=== PATIENT | female | born 1935 | race Caucasian/White ===

== ENCOUNTER 2024-04-08 09:48 | Outpatient (AMB) | payer MEDICARE, SELFPAY ==
--- NOTE | 2024-04-08 09:34 | MHC.PC.OV ---
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 Patient brought in a blood pressure log, suggested by her son who is an PROFESSIONAL FIGHTER. Patient wanted to inform her provider of her cardiac appointment. Patient is taking mucinex DM Q12H as needed, calcium magnesium 500mg TID with vitamin D3 1000mg, vitamin C 1000mg daily, vitamin d3 5000iu weekly, vitamin b complex, zinc 22mg, joint health OTC vitamin 2 capsules, black elderberry syrup. Patient has a concern for pain in bilateral hands (carpal tunnel), RX for brace RX for a cane Bilateral leg swelling with feet turning red ECHO for heart health check- family history of heart disease Patient lost her sister recently Strategy Specialist Required: No Accompanied by: Grand Child Allergies alendronate sodium [From Fosamax] Allergy (Severe, Verified 04/08/24 10:04) Diarrhea latex Allergy (Severe, Verified 04/08/24 10:04) Rash NSAIDS (Non-Steroidal Anti-Inflamma Allergy (Severe, Verified 04/08/24 10:04) Stomach Upset Penicillins Allergy (Severe, Verified 04/08/24 10:04) Rash Medication List - Last Reconciled 04/11/24 by Brandie Gómez MD acetaminophen 500 mg PO Q6H PRN arm brace As directed Carpal tunnel rigid plantar wrist brace. L& R atorvastatin 40 mg PO BEDTIME azelaic acid 15% (Finacea) 1 appl topical BID azithromycin 250 mg PO .1 hour before appt cane As directed cetirizine (All Day Allergy (cetirizine)) 10 mg PO DAILY PRN fluticasone furoate 50 mcg/actuation inhalation furosemide 20 mg PO DAILY hard/soft/gas permeable prods (Systane Contacts eye drops) As directed ipratropium bromide 2 sprays intranasal BID metronidazole 1% (Metrogel) 1 appl topical DAILY omeprazole 20 mg PO DAILY vitamins A,C,G-spbg-gizezm 2,148 mcg-113 mg-45 mg-17.4mg (PreserVision AREDS) 2 tabs PO BID HPI HPI Comments History of Present Illness Details 88 year old female with a past medical history of hypertension, hyperlipidemia, GERD, osteoporosis presenting for follow up CV: on losartan 100mg daily, furosemide, atorvastatin. No increase in cheset pain, LE edema. She had an echo in 2020, stress echo in 2021-EF decreased from 55-60 to 45-50 with hypokineses noted. Cardiology had recommended catheterization but patient wanted to defer GERD: On PPI. Endo: Follows with [facility] endo. Used actonel and fosamax in the past with exacerbation of GERD. Saw them 02/2024 discussed reclast further. She is repeating labs, bone density and following up in TOMEKA: on CPAP MSK: Chronic bilateral knee pain. History of knee replacements. Worsening carpal tunnel bilateral hands negatively effecting ADLs. Needs cane at times. Uses braces but quite old Colonoscopy 2016-saw gi decline colonoscopy Mammo 05/2022. Stopped Gas Desulfurizer 11/2021 s/p TSH BSO ROS CONSTITUTIONAL: Denies weight loss, fever and chills. HEENT: Denies changes in vision and hearing. RESPIRATORY: Denies SOB and cough. CV: Denies palpitations and CP GI: Denies abdominal pain, nausea, vomiting and diarrhea. : Denies dysuria and urinary frequency. MSK: Denies new myalgia and joint pain. SKIN: Denies rash and pruritus. NEUROLOGICAL: Denies headache PSYCHIATRIC: Denies recent changes in mood. PHYSICAL EXAM: GENERAL: Alert and oriented x 3. NAD EYES: EOMI. Anicteric. HENT: Moist mucous membranes. No scleral icterus. No cervical lymphadenopathy. LUNGS: Clear to auscultation bilaterally. CARDIOVASCULAR: Regular rate and rhythm. ABDOMEN: Soft, non-tender +bs EXTREMITIES: No edema. Non-tender. SKIN: No rashes or lesions. Warm. NEUROLOGIC: No focal neurological deficits. CN II-XII grossly intact PSYCHIATRIC: Cooperative. Appropriate mood and affect [facility] Medical History Vitamin D deficiency Tubular adenoma of colon Tinnitus Squamous cell carcinoma in situ TOMEKA (obstructive sleep apnea) History of nocturia Mixed incontinence Mantoux: positive Hypertension Hyperlipidemia Hyperglycemia Eczema Deep vein thrombosis Benign familial hematuria Arthritis Macular degeneration, age related Surgical History History of total right knee replacement History of bilateral oophorectomy History of hysterectomy Hx of appendectomy History of colonoscopy Social History Household Members: Spouse Housing: House Alcohol intake: current Alcohol intake frequency: holidays/special occasions only Patient Tobacco Use Status: Never used Tobacco e-Cigarette/Vaping Use: Never Used service: No Current occupational status: retired Cognitive needs: No Hearing needs: No Vision needs: No Questionnaire PHQ-9 Over the last 2 weeks, how often have you been bothered by any of the following problems? 1. Little interest or pleasure in doing things: not at all 2. Feeling down, depressed, or hopeless: not at all 3. Trouble falling or staying asleep, or sleeping too much: several days 4. Feeling tired or having little energy: not at all 5. Poor appetite or overeating: not at all 6. Feeling bad about yourself - or that you are a failure or have let yourself or your family down: not at all 7. Trouble concentrating on things, such as reading the newspaper or watching television: not at all 8. Moving or speaking so slowly that other people could have noticed. Or the opposite - being so fidgety or restless that you have been moving around a lot more than usual: not at all 9. Thoughts that you would be better off or of hurting yourself in some way: not at all Total score: 1 Depression Screening Interpretation: Negative (neg) Depression Screening Done: Yes 55532 - PHQ-9 Billing: Yes Source: Developed by Drs. Hi Pradhan, Rosa Rdz, Zechariah Gao and colleagues, with an educational cherelle from [employer]. Thrive Questionnaire Date Thrive assessed: 04/08/24 I am a: Patient What is your living situation today?: I have a steady place to live Within the past 12 months, did the food you bought not last and you didn't have the money to get more?: Never true Within the past 12 months, did you worry whether your food would run out before you got money to buy more?: Never true Do you have trouble paying for medicines?: No Do you have trouble getting transportation to medical appointments?: No Do you have trouble paying your heating and electricity bill?: No Do you have trouble taking care of your child, family member or friend?: No Do you have trouble with day-to-day activities such as bathing, preparing meals, shopping, managing finances, etc.?: No Are you currently unemployed and looking for a job?: No Are you interested in more education?: No Please select the resources that you would like help with: None Currently or been in a relationship where the following occur: No concerns reported THRIVE Score: 0 AUDIT C Alcohol Use Questionnaire (AUDIT-C) 1. How often do you have a drink containing alcohol?: Never 3. How often do you have six or more drinks on one occasion?: Never Total Score: 0 BRANDAN-7 AMB Questionnaire BRANDAN-7 Date BRANDAN - 7 assessed: 04/08/24 Feeling nervous, anxious, or on edge: 0 = Not at all Not being able to stop or control worryin = Not at all Worrying too much about different things: 0 = Not at all Trouble relaxin = Not at all Being so restless that it is hard to sit still: 0 = Not at all Becoming easily annoyed or irritable: 0 = Not at all Feeling afraid as if something awful might happen: 0 = Not at all Total BRANDAN-7 score (0-4 normal; 5-9 mild; 10-14 moderate; 15-21 severe): 0 Source: Developed by Drs. Hi Pradhan, Rosa Rdz, Zechariah Gao and colleagues, with an educational cherelle from [employer]. BRANDAN-7 Assessment Billing BRANDAN-7 Assessment Tool: BRANDAN-7 Assessment 26998 Physical exam (Primary Care) Vital Signs: Last Vital Signs Pulse 87 04/08/24 09:58 Resp 12 04/08/24 09:58 BP 146/74 H 04/08/24 09:58 Pulse Ox 97 04/08/24 09:58 Oxygen Delivery Method Room Air 04/08/24 09:58 BMI result Body Mass Index 32.2 Tobacco/Smoking Status: Tobacco use Status Patient Tobacco Use Status Never used Tobacco 04/08/24 10:31 e-Cigarette/Vaping Use Never Used 04/08/24 10:31 PHQ-9: PHQ-9 Score PHQ-9: Total score 1 04/08/24 10:50 Depression Screening Interpretation: Negative (neg) Thrive Assessment: Date of Thrive Assessment Date Thrive assessed 04/08/24 04/08/24 10:26 Currently or been in a relationship where the following occur: No concerns reported Assessment and Plan Assessment & Plan (1) Hypertension: Code(s): I10 - Essential (primary) hypertension Qualifiers: Hypertension type: primary hypertension Qualified Code(s): I10 - Essential (primary) hypertension Plan: Blood pressure slightly elevated Will treat per previous guidelines <150/90 given patients age. Labs ordered Echo ordered (2) Hyperglycemia: Code(s): R73.9 - Hyperglycemia, unspecified Plan: Labs ordered (3) Carpal tunnel syndrome: Code(s): G56.00 - Carpal tunnel syndrome, unspecified upper limb Qualifiers: Laterality: unspecified laterality Qualified Code(s): G56.00 - Carpal tunnel syndrome, unspecified upper limb Plan: referral to orthopedics placed (4) CHF (congestive heart failure): Code(s): I50.9 - Heart failure, unspecified Qualifiers: Heart failure type: combined systolic and diastolic Heart failure chronicity: chronic Qualified Code(s): I50.42 - Chronic combined systolic (congestive) and diastolic (congestive) heart failure Plan: Euvolemic Continue current medications Orders: Orders Complete Blood Count Auto Diff 04/08/24 G47.33 - Obstructive sleep apnea (adult) (pediatric), I10 - Essential (primary) hypertension, I50.9 - Heart failure, unspecified, R73.9 - Hyperglycemia, unspecified Comprehensive Met. Panel 04/08/24 G47.33 - Obstructive sleep apnea (adult) (pediatric), I10 - Essential (primary) hypertension, I50.9 - Heart failure, unspecified, R73.9 - Hyperglycemia, unspecified Lipid Panel 04/08/24 G47.33 - Obstructive sleep apnea (adult) (pediatric), I10 - Essential (primary) hypertension, I50.9 - Heart failure, unspecified, R73.9 - Hyperglycemia, unspecified Hemoglobin A1c 04/08/24 G47.33 - Obstructive sleep apnea (adult) (pediatric), I10 - Essential (primary) hypertension, I50.9 - Heart failure, unspecified, R73.9 - Hyperglycemia, unspecified TSH reflex Free T4 04/08/24 G47.33 - Obstructive sleep apnea (adult) (pediatric), I10 - Essential (primary) hypertension, I50.9 - Heart failure, unspecified, R73.9 - Hyperglycemia, unspecified CA echo transthoracic complete 04/08/24 G47.33 - Obstructive sleep apnea (adult) (pediatric), I10 - Essential (primary) hypertension, I50.9 - Heart failure, unspecified, R73.9 - Hyperglycemia, unspecified Referrals Orthopedics Referral G56.00 - Carpal tunnel syndrome, unspecified upper limb Medications: New cane As directed 1 ea 0RF M25.561 - Pain in right knee arm brace As directed Carpal tunnel rigid plantar wrist brace. 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
[2024-04-08 09:58] VITALS: BP 146/74; PULSE 87; RESP 12; O2SAT 97; BMI 32.2
== END 2024-04-08 10:53 | disposition home or self-care (01) ==
PROVIDERS: PCP Internal Medicine; Visit Provider Internal Medicine
DX: I11.0 Hypertensive heart disease with heart failure (principal); I50.42 Chronic combined systolic (congestive) and diastolic (congestive) heart failure; R73.9 Hyperglycemia, unspecified; G56.00 Carpal tunnel syndrome, unspecified upper limb
CPT/HCPCS: 99215

== ENCOUNTER 2024-04-08 11:02 | Outpatient (REF) | payer MEDICARE, SELFPAY ==
[2024-04-08 14:00] LABS: MANUAL DIFF FLAG NO
[2024-04-08 14:02] LABS: Basophils Percent Auto 1.1 % (0-2); Eosinophils Absolute Auto 0.1 X10*3/uL (0.0-0.4); Eosinophils Percent Auto 3.3 % (0-4); Hematocrit 36.5 % (37.0-47.0); Hemoglobin 12.3 g/dl (12.0-16.0); Lymphocytes Percent Auto 28.3 % (20-40); Mean Corpuscular HGB Conc 33.7 g/dl (31.0-35.0); Mean Corpuscular Hemoglobin 33.2 pg (27.0-33.0); Mean Corpuscular Volume 98.6 fL (80.0-98.0); Mean Platelet Volume 10.9 fL (9.4-12.3); Monocytes Absolute Auto 0.3 X10*3/uL (0.1-1.2); Monocytes Percent Auto 8.4 % (2-11); Neutrophils Absolute Auto 2.2 x10*3/uL (2.0-8.3); Neutrophils Percent Auto 58.9 % (45-73); Platelet Count 175 X10*3/uL (160-400); Red Cell Distribution Width 12.3 % (11.0-16.0); White Blood Count 3.7 X10*3/uL (4.8-10.8)
[2024-04-08 14:14] LABS: Estimated Average Glucose 105 mg/dL; Hemoglobin A1c % 5.3 % (<6.0)
[2024-04-08 14:26] LABS: Alanine Aminotransferase 17 U/L (0-31); Albumin Level 4.3 g/dL (3.5-5.0); Alkaline Phosphatase 78 U/L (39-117); Anion Gap 12 (12-20); Aspartate Amino Transferase 23 U/L (5-31); Bilirubin Total 0.7 mg/dL (0.0-1.0); Blood Urea Nitrogen 16 mg/dL (9-16); Calcium 9.7 mg/dL (8.4-10.2); Carbon Dioxide 30 mmol/L (22-29); Chloride 104 mmol/L (96-108); Cholesterol 135 mg/dL (<200); Estimated Glomerular Filt Rate > 60; Glucose Random 98 mg/dL (60-115); HDL Cholesterol 72 mg/dL (>40); LDL Cholesterol Calculated 56 mg/dL (<100); Potassium 3.7 mmol/L (3.3-5.1); Sodium 142 mmol/L (135-145); Total Protein 7.2 g/dL (6.5-8.0); Triglycerides 37 mg/dL (<150)
[2024-04-08 14:44] LABS: TSH reflex Free T4 2.12 uIU/mL (0.32-4.0)
== END 2024-04-08 11:03 | disposition home or self-care (01) ==
LOC: HO.WFDLDS 11:02
PROVIDERS: Visit Provider Internal Medicine
DX: G47.33 Obstructive sleep apnea (adult) (pediatric) (principal); I10 Essential (primary) hypertension; R73.9 Hyperglycemia, unspecified; I50.9 Heart failure, unspecified
CPT/HCPCS: 36415; 80053; 80061; 83036; 84443; 85025

== ENCOUNTER → 2024-04-23 10:53 | Outpatient (REF) | payer MEDICARE, SELFPAY ==
--- NOTE | 2024-04-23 10:56 | CA_ITS ---
Transthoracic Echocardiogram Patient (Last, First, Middle): Alaina Mack, Gender: Female Date of : 1935 Age: 88 Procedure Date: 04/23/2024 Procedure Type: Transthoracic Echocardiogram Location: OP Height: 160.02 cm Weight: 82.56 kg BSA: 1.86 m2 Heart Rate: 69 bpm BP: 146 / 74 mmHg Installations Inspector: SB Referring MD: Brandie Gómez MD Support Services Coordinator: Catrachito Munguia MD Symptoms: I50.9 - Heart failure, unspecified Study Quality: Adequate ECG Rhythm: Sinus Conclusions: - 1. Normal LV ejection fraction 60 65% with grade 2 diastolic dysfunction 2. Mild mitral annular calcification with mild mitral regurgitation 3. Normal RV systolic pressure 4. No gross pericardial effusion Findings Left Ventricle Normal left ventricular size, thickness, and systolic function. The visually estimated ejection fraction is between 60-65%. Spectral Doppler is indicative of a pseudonormal filling pattern. E/E prime ratio is >15, consistent with elevated filling pressures. Evidence suggests grade II (moderate) diastolic dysfunction. Right Ventricle Normal right ventricular cavity size and systolic function. Atria The left atrium is mildly dilated. There is no evidence of interatrial shunt. The right atrium is normal in size. Aortic Valve The aortic valve structure and function is likely normal. There is no aortic valve stenosis. There is no aortic valve regurgitation. Mitral Valve There is mild anterior and moderate posterior mitral leaflet thickening. There is mild mitral annular calcification. There is mild mitral valve regurgitation. There is no mitral valve stenosis. Pulmonic Valve The pulmonic valve was not well visualized. Tricuspid Valve Likely normal tricuspid valve structure and function. There is trace tricuspid valve regurgitation. The right ventricular systolic pressure is normal. The right ventricular systolic pressure is 22 mmHg. Normal right atrial pressure. There is no evidence of pulmonary hypertension. Great Vessels All visible segments of the aorta are normal in size. The pulmonary artery was not well visualized. Venous The inferior vena cava is normal in size and collapses greater than 50% with inspiration. Pericardium/Pleural There is no evidence of pericardial effusion. Prior Study Comparison No prior study available for comparison. Measurements 2D Linear Measurements IVSd: 0.84 0.6-0.9/0.6-1.0 cm LVIDd: 5.27 3.9-5.3/4.2-5.9 cm LVIDd Index: 2.83 2.4-3.2/2.2-3.1 cm/m2 LVIDs: 3.71 2.0-3.6 cm LVPWd: 0.91 0.7-1.1 cm LA Diam: 4.20 2.7-3.8/3.0-4.0 cm LAIDs Index: 2.26 1.5-2.3 cm/m2 LV Mass: 207.26 67-162/88-224 g LV Mass Index: 111.43 43-95/49-115 g/m2 LVOT Diam: 2.10 3.0+(-)1.3 cm 2D Systolic Function EF 4C: 52.60 >55% EF 2C: 68.30 >55% EF BiP: 60.50 >55% Mitral Valve MV Pk E: 1.12 MV PK A: 0.93 MV Decel Time: 173.00 E/A: 1.20 E'Lateral: 6.31 E'Medial: 7.18 E/E' Med: 15.60 E/E' Lat: 17.70 PHT: 51.00 MVA PHT: 4.31 Decel Mobile: 6.46 Aortic Valve AoV Pk Leo: 1.31 AoV Mn Leo: 1.00 AoV VTI: 0.32 AoV Pk Grad: 7.00 Aov Mn Grad: 4.00 IKMBERLY Cont.VTI: 2.24 KIMBERLY: 2.67 LVOT LVOT Pk Leo: 0.92 LVOT Mn Leo: 0.62 LVOT VTI: 0.21 LVOT Pk Grad: 3.00 LVOT Mn Grad: 2.00 LVOT Diam: 2.10 LVOT Area: 3.46 Diastolic Function MV Pk E: 1.12 MV Pk A: 0.93 E/A: 1.20 E'Medial: 7.18 E/E' Med: 15.60 E' Laterial: 6.31 E/E' Lat: 17.70 Right Ventricle TAPSE (mm): 22.60 TVS' Leo: 15.10 Tricuspid Valve TR Pk Leo: 2.20 TR Pk Grad: 19.00 RA Press: 3.00 RVSP: 22.00 Great Vessels Aorta Sinus of Valsalva: 3.10 2.0-3.5 cm Ao Asc: 3.40 2.1-3.4 cm Pulmonary Veins Pulm Vein S/D 1.10 Pulmonary Valve PV Pk Leo: 0.89 Peak PV Grad: 3.00 Updated in Other Vendor System with Status of Final Catrachito Munguia MD electronically signed on 04/23/2024 12:35:21 PM with status of Final
== END ==
LOC: HO.CARD 10:53
PROVIDERS: PCP Internal Medicine; Visit Provider Internal Medicine
DX: I11.0 Hypertensive heart disease with heart failure (principal); I50.9 Heart failure, unspecified
CPT/HCPCS: 93306

== ENCOUNTER → 2024-04-23 10:56 | Outpatient (BNV) | payer MEDICARE, SELFPAY | PROVIDERS: PCP Internal Medicine; Visit Provider Internal Medicine Cardiovascular Disease | DX: I34.0 Nonrheumatic mitral (valve) insufficiency (principal); I34.81 Nonrheumatic mitral (valve) annulus calcification | CPT/HCPCS: 93306 ==

== ENCOUNTER → 2024-06-11 11:18 | Outpatient (BNVA) | payer MEDICARE, SELFPAY | PROVIDERS: PCP Internal Medicine; Visit Provider Internal Medicine ==

== ENCOUNTER 2024-06-14 10:06 | Outpatient (AMB) | payer MEDICARE, SELFPAY ==
--- NOTE | 2024-06-14 10:13 | MHC.PC.OV ---
Vital Signs 06/14/24 10:16 Height 5 ft 3 in Weight 186 lb BMI 32.9 BP 146/70 H Blood Pressure Location Lt brachial Position Sitting Respiration 12 Pulse 72 Pulse Source Pulse Oximeter Pulse Oximetry (%) 98 Oxygen Delivery Method Room Air Intake Visit Reasons: FOLLOW UP LABS Intake Note: Patient would like to follow up regarding her labs and most recent echo. Patient reports she needs a refill on her medications. 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 Accompanied by: Family/Other Allergies alendronate sodium [From Fosamax] Allergy (Severe, Verified 06/14/24 10:25) Diarrhea latex Allergy (Severe, Verified 06/14/24 10:25) Rash NSAIDS (Non-Steroidal Anti-Inflamma Allergy (Severe, Verified 06/14/24 10:25) Stomach Upset Penicillins Allergy (Severe, Verified 06/14/24 10:25) Rash Tobacco use date assessed: 06/11/24 Dental Screening Dental Screen Date: 06/11/24 HPI HPI Comments History of Present Illness Details 88 year old female with a past medical history of hypertension, hyperlipidemia, GERD, osteoporosis presenting for follow up CV: on losartan 100mg daily, furosemide, atorvastatin. Recent echo with normalized EF, grade 11 diastolic dysfunction. Still has some non pitting edema. No flares of weight gain. Sees cardiology. Has an appointment to see vascular. No increase in cheset pain, LE edema. She had an echo in 2020, stress echo in 2021-EF decreased from 55-60 to 45-50 with hypokineses noted. Cardiology had recommended catheterization but patient wanted to defer GERD: On PPI. Endo: Follows with [facility] endo. Used actonel and fosamax in the past with exacerbation of GERD. Saw them 02/2024 discussed reclast further. She is repeating labs, bone density and following up in may/jun TOMEKA: on CPAP MSK: Chronic bilateral knee pain. History of knee replacements. Worsening carpal tunnel bilateral hands negatively effecting ADLs. Needs cane at times. Uses braces but quite old Colonoscopy 2016-saw gi decline colonoscopy Mammo 05/2022. 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 HEENT: Denies changes in vision and hearing. RESPIRATORY: Denies SOB and cough. CV: Denies palpitations and CP GI: Denies abdominal pain, nausea, vomiting and diarrhea. : Denies dysuria and urinary frequency. MSK: Denies new myalgia and joint pain. SKIN: Denies rash and pruritus. NEUROLOGICAL: Denies headache PSYCHIATRIC: Denies recent changes in mood. PHYSICAL EXAM: GENERAL: Alert and oriented x 3. NAD EYES: EOMI. Anicteric. HENT: Moist mucous membranes. No scleral icterus. No cervical lymphadenopathy. LUNGS: Clear to auscultation bilaterally. CARDIOVASCULAR: Regular rate and rhythm. ABDOMEN: Soft, non-tender +bs EXTREMITIES: No edema. Non-tender. SKIN: No rashes or lesions. Warm. NEUROLOGIC: No focal neurological deficits. CN II-XII grossly intact PSYCHIATRIC: Cooperative. Appropriate mood and affect [facility] Medical History Vitamin D deficiency Tubular adenoma of colon Tinnitus Squamous cell carcinoma in situ TOMEKA (obstructive sleep apnea) History of nocturia Mixed incontinence Mantoux: positive Hypertension Hyperlipidemia Hyperglycemia Eczema Deep vein thrombosis Benign familial hematuria Arthritis Macular degeneration, age related Surgical History History of total right knee replacement History of bilateral oophorectomy History of hysterectomy Hx of appendectomy History of colonoscopy Family History Other Family history unknown Social History Household Members: Spouse Housing: House Are you a primary hospice care transitions coordinator to a significant other at home: No Do you presently have visiting nurse or other home services: No 75 years or older and lives alone: No Alcohol intake: current Alcohol intake frequency: holidays/special occasions only Patient Tobacco Use Status: Never used Tobacco e-Cigarette/Vaping Use: Never Used Use of substances other than those prescribed or required for medical reasons: No Have you been hit, kicked, punched, or otherwise hurt by someone within the past year? If so, by whom?: No Do you feel safe in your current relationship?: Yes Is there a partner from a previous relationship who is making you feel unsafe now?: No Are you made to feel afraid or neglected: No service: No Current occupational status: retired Cognitive needs: No Hearing needs: No Vision needs: No Questionnaire PHQ-9 Over the last 2 weeks, how often have you been bothered by any of the following problems? 66390 - PHQ-9 Billing: Patient declined-do not bill Source: Developed by Drs. Hi Pradhan, Zechariah Crook and colleagues, with an educational cherelle from [employer] Thrive Questionnaire Date Thrive assessed: 06/11/24 I am a: Patient What is your living situation today?: I have a steady place to live Within the past 12 months, did the food you bought not last and you didn't have the money to get more?: I choose not to answer this question Within the past 12 months, did you worry whether your food would run out before you got money to buy more?: Never true Do you have trouble paying for medicines?: No Do you have trouble getting transportation to medical appointments?: No Do you have trouble paying your heating and electricity bill?: No Do you have trouble taking care of your child, family member or friend?: No Do you have trouble with day-to-day activities such as bathing, preparing meals, shopping, managing finances, etc.?: No Are you currently unemployed and looking for a job?: No Are you interested in more education?: No Please select the resources that you would like help with: None Currently or been in a relationship where the following occur: I choose not to answer THRIVE Score: 0 AUDIT C Alcohol Use Questionnaire (AUDIT-C) 1. How often do you have a drink containing alcohol?: Never 3. How often do you have six or more drinks on one occasion?: Never Total Score: 0 BRANDAN-7 AMB Questionnaire BRANDAN-7 Date BRANDAN - 7 assessed: 04/08/24 Source: Developed by Drs. Hi Pradhan, Rosa Rdz, Zechariah Gao and colleagues, with an educational cherelle from [employer]. BRANDAN-7 Assessment Billing BRANDAN-7 Assessment Tool: pt declined-do not bill Physical exam (Primary Care) Vital Signs: Last Vital Signs Pulse 72 06/14/24 10:16 Resp 12 06/14/24 10:16 BP 146/70 H 06/14/24 10:16 Pulse Ox 98 06/14/24 10:16 Oxygen Delivery Method Room Air 06/14/24 10:16 BMI result Body Mass Index 32.9 Tobacco/Smoking Status: Tobacco use Status Tobacco use date assessed 06/11/24 06/14/24 10:14 Patient Tobacco Use Status Never used Tobacco 06/14/24 10:16 e-Cigarette/Vaping Use Never Used 06/14/24 10:16 Thrive Assessment: Date of Thrive Assessment Date Thrive assessed 06/11/24 06/14/24 10:14 Currently or been in a relationship where the following occur: I choose not to answer Results AMB Hemoglobin A1c AMB Hemoglobin A1c 5.5 % Last Edit by Karyna Perez CMA on 06/14/24 11:32 Results Reviewed Results Reviewed: Laboratory Last Values Hgb A1c (Clinic) 5.5 % (4.0-6.0) 06/14/24 11:31 Assessment and Plan Assessment & Plan (1) CHF (congestive heart failure): Code(s): I50.9 - Heart failure, unspecified Qualifiers: Heart failure type: combined systolic and diastolic Heart failure chronicity: chronic Qualified Code(s): I50.42 - Chronic combined systolic (congestive) and diastolic (congestive) heart failure Plan: Euvolemic. continue current dosing of diuretic. Reviewed echocardiogram. REviewed labs (2) Hyperglycemia: Code(s): R73.9 - Hyperglycemia, unspecified Plan: Monitor A1C. Orders: Orders Complete Blood Count Auto Diff 06/14/24 D64.9 - Anemia, unspecified, I10 - Essential (primary) hypertension, R73.9 - Hyperglycemia, unspecified Lipid Panel 3 Months D64.9 - Anemia, unspecified, I10 - Essential (primary) hypertension, R73.9 - Hyperglycemia, unspecified AMB Hemoglobin A1c 06/14/24 E11.9 - Type 2 diabetes mellitus without complications Vitamin B12 and Folate 06/14/24 D64.9 - Anemia, unspecified, I10 - Essential (primary) hypertension, R73.9 - Hyperglycemia, unspecified IRON PROFILE 06/14/24 D64.9 - Anemia, unspecified, I10 - Essential (primary) hypertension, R73.9 - Hyperglycemia, unspecified Medications: On Hold atorvastatin Hold Comment: Doctor's Order 40 mg PO BEDTIME 90 tabs 2RF Coding Level of Care Code Est Pt Level 4 (10513) Diagnoses 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 Heart failure type: combined systolic and diastolic Heart failure chronicity: chronic Hyperglycemia R73.9
[2024-06-14 10:16] VITALS: BP 146/70; PULSE 72; RESP 12; O2SAT 98; BMI 32.9
== END 2024-06-14 11:00 | disposition home or self-care (01) ==
PROVIDERS: PCP Internal Medicine; Visit Provider Internal Medicine
DX: I50.42 Chronic combined systolic (congestive) and diastolic (congestive) heart failure (principal); R73.9 Hyperglycemia, unspecified

== ENCOUNTER → 2024-06-14 10:06 | Outpatient (BNVA) | payer MEDICARE, SELFPAY | PROVIDERS: PCP Internal Medicine; Visit Provider Internal Medicine | DX: I50.42 Chronic combined systolic (congestive) and diastolic (congestive) heart failure (principal); R73.9 Hyperglycemia, unspecified | CPT/HCPCS: 83036; 99212 ==

== ENCOUNTER 2024-10-08 11:02 | Outpatient (AMB) | payer MEDICARE, SELFPAY ==
--- NOTE | 2024-10-08 11:19 | A.OFFPC_ITS ---
Intake Visit Reasons: [id number] Intake Note: Medical wellness visit. Need new CPAP supplies. Refill on Omeprazole. Steward/Stewardess Wine Required: No Allergies alendronate sodium [From Fosamax] Allergy (Severe, Verified 10/08/24 11:20) Diarrhea latex Allergy (Severe, Verified 10/08/24 11:20) Rash NSAIDS (Non-Steroidal Anti-Inflamma Allergy (Severe, Verified 10/08/24 11:20) Stomach Upset Penicillins Allergy (Severe, Verified 10/08/24 11:20) Rash Tobacco use date assessed: 06/11/24 Dental Screening Dental Screen Date: 06/11/24 HPI HPI Comments History of Present Illness Details 88 year old female with a past medical h istory of hypertension, h yperlipidemia, GERD, osteoporosis presenting for AWV CV: on losartan 100mg daily, furosemide, atorvastatin. Blood pressure reviewed and well controlled. Recent echo with normalized EF, grade 2 diastolic dysfunction. Still has some non pitting edema. No flares of weight gain. Sees cardiology. Has an appointment to see vascular. No increase in cheset pain, LE edema. She had an echo in 2020, stress echo in 2021-EF decreased from 55-60 to 45-50 with hypokineses noted. Cardiology had recommended catheterization but patient wanted to defer GERD: On PPI. Endo: Follows with [facility]. Used actonel and fosamax in the past with exacerbation of GERD. Saw them 02/2024 discussed reclast further. She is repeating labs, bone density and following up in may/jun TOMEKA: on CPAP. Needs new MSK: Chronic bilateral knee pain. History of knee replacements. Worsening carpal tunnel bilateral hands negatively effecting ADLs. Needs cane at times. Uses braces but quite old Colonoscopy 2016-saw gi decline colonoscopy Mammo 05/2022. UTD Manager Rfid 11/2021 s/p TSH BSO HRA reviewed Care team reviewed 3/3 memory independent ADLS with exception does not drive. Good support Negative depression ROS CONSTITUTIONAL: Denies weight loss, fever and chills. HEENT: Denies changes in vision and hearing. RESPIRATORY: Denies SOB and cough. CV: Denies palpitations and CP GI: Denies abdominal pain, nausea, vomiting and diarrhea. : Denies dysuria and urinary frequency. MSK: Denies new myalgia and joint pain. SKIN: Denies rash and pruritus. NEUROLOGICAL: Denies headache PSYCHIATRIC: Denies recent changes in mood. PHYSICAL EXAM: GENERAL: Alert and oriented x 3. NAD EYES: EOMI. Anicteric. HENT: Moist mucous membranes. No scleral icterus. No cervical lymphadenopathy. LUNGS: Clear to auscultation bilaterally. CARDIOVASCULAR: Regular rate and rhythm. ABDOMEN: Soft, non-tender +bs EXTREMITIES: No edema. Non-tender. SKIN: No rashes or lesions. Warm. NEUROLOGIC: No focal neurological deficits. CN II-XII grossly intact PSYCHIATRIC: Cooperative. Appropriate mood and affect [facility] Medical History Vitamin D deficiency Tubular adenoma of colon Tinnitus Squamous cell carcinoma in situ OTMEKA (obstructive sleep apnea) History of nocturia Mixed incontinence Mantoux: positive Hypertension Hyperlipidemia Hyperglycemia Eczema Deep vein thrombosis Benign familial hematuria Arthritis Macular degeneration, age related Surgical History History of total right knee replacement History of bilateral oophorectomy History of hysterectomy Hx of appendectomy History of colonoscopy Family History Other Family history unknown Social History Household Members: Spouse Housing: House Are you a primary manager medicare marketing to a significant other at home: No Do you presently have visiting nurse or other home services: No 75 years or older and lives alone: No Alcohol intake: current Alcohol intake frequency: holidays/special occasions only Patient Tobacco Use Status: Never used Tobacco e-Cigarette/Vaping Use: Never Used service: No Current occupational status: retired Cognitive needs: No Hearing needs: No Vision needs: No Questionnaire Thrive Questionnaire Date Thrive assessed: 10/08/24 BRANDAN-7 AMB Questionnaire BRANDAN-7 Date BRANDAN - 7 assessed: 04/08/24 Source: Developed by Drs. Hi Pradhan, Rosa Rdz, Zechariah Gao and colleagues, with an educational cherelle from [employer]. Physical exam (Primary Care) Tobacco/Smoking Status: Tobacco use Status Tobacco use date assessed 06/11/24 10/08/24 11:27 Patient Tobacco Use Status Never used Tobacco 10/08/24 11:27 e-Cigarette/Vaping Use Never Used 10/08/24 11:27 Thrive Assessment: Date of Thrive Assessment Date Thrive assessed 10/08/24 10/08/24 11:27 Coding Level of Care Code Est Pt Level 4 (61657) Diagnoses Annual wellness visit Z00.00 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 Heart failure chronicity: chronic Heart failure type: combined systolic and diastolic Assessment & Plan Assessment & Plan (1) Annual wellness visit: Code(s): Z00.00 - Encounter for general adult medical examination without abnormal findings Category: Medical Plan: see HPI (2) CHF (congestive heart failure): Code(s): I50.9 - Heart failure, unspecified Category: Medical Qualifiers: Heart failure chronicity: chronic Heart failure type: combined systolic and diastolic Qualified Code(s): I50.42 - Chronic combined systolic (congestive) and diastolic (congestive) heart failure Plan: euvolemic. continue cardiology follow up Orders: Orders Complete Blood Count Auto Diff 10/08/24 D64.9 - Anemia, unspecified, I10 - Essential (primary) hypertension, R73.9 - Hyperglycemia, unspecified, I50.42 - Chronic combined systolic (congestive) and diastolic (congestive) heart failure Comprehensive Met. Panel 10/08/24 D64.9 - Anemia, unspecified, I10 - Essential (primary) hypertension, R73.9 - Hyperglycemia, unspecified, I50.42 - Chronic combined systolic (congestive) and diastolic (congestive) heart failure Lipid Panel 10/08/24 D64.9 - Anemia, unspecified, I10 - Essential (primary) hypertension, R73.9 - Hyperglycemia, unspecified, I50.42 - Chronic combined systolic (congestive) and diastolic (congestive) heart failure Hemoglobin A1c 10/08/24 D64.9 - Anemia, unspecified, I10 - Essential (primary) hypertension, R73.9 - Hyperglycemia, unspecified, I50.42 - Chronic combined systolic (congestive) and diastolic (congestive) heart failure Referrals Cologuard Test Z12.11 - Encounter for screening for malignant neoplasm of colon, Z12.12 - Encounter for screening for malignant neoplasm of rectum, Z86.0100 - Personal history of colon polyps, unspecified Medications: New prednisone 40 mg (2 x 20 mg) PO DAILY 10 tabs 0RF 5 days diclofenac sodium 1% (Aleve (diclofenac)) apply to single knee, ankle, foot; for foot includes sole/toes/top of foot 4 grams topical QID 100 grams 3RF
--- OUTSIDE RECORDS SUMMARY | 2024-10-08 12:41 | XMS_ITS | Clinical Summary ---
Author Organization [facility] Address [address] [place] [id number] Phone Care Team Providers Care Turf Farmer Name Role Phone Brandie Gómez MD Primary Care Provider [phone] Encounters Date Type Department Care Team Description 09/02/2024 10:33 AM EST - 09/02/2024 11:59 PM EST Hospital [facility] [address] [id number] Encounter for screening mammogram for breast cancer Discharge Disposition: Home or Self Care from Last 3 Months Surgical History Surgery Date Site/Laterality Comments HYSTERECTOMY Family History Medical History Relation Name Comments Breast cancer Mother's Sister Relation Name Status Comments Mother's Sister Social History Tobacco Use Types Packs/Day Years Used Date Smoking Tobacco: Never Assessed Sex and Gender Information Value Date Recorded Sex Assigned at Female 07/23/2024 8:26 AM EST Gender Identity Female 07/23/2024 8:26 AM EST Sexual Orientation Straight 07/23/2024 8: 26 AM EST Job Start Date Occupation Industry Not on file Not on file Not on file Obstetrics History Para Term AB IAB SAB Ectopic Multiple Livin g Live Births 4 Last Filed Vital Signs Vital Sign Reading Time Taken Comments Blood Pressure - - Pulse - - Temperature - - Respiratory Rate - - Oxygen Saturation - - Inhaled Oxygen Concentration - - Weight 77.1 kg (170 lb) 09/02/2024 10:52 AM EST Height 160 cm (5' 3 ) 09/02/2024 10:52 AM EST Body Mass Index 30.11 09/02/2024 10:52 AM EST Plan of Treatment Health Maintenance Due Date Last Done Comments Zoster Vaccines (1 of 2) 01/31/2008 12/06/2007 RSV Immunization Patients 60+ Years Old (1 - 1-dose 75+ series) 2012 Cholesterol Screening (Lipid Panel) 08/16/2022 Depression Screening 08/16/2022 Falls Risk Assessment 08/16/2022 Medicare Annual Wellness Visit 08/16/2022 Social Influencers of Health Screening 08/16/2022 COVID-19 Vaccine ( season) 2024 09/28/2021, 01/21/2021, 12/29/2020 Hypertension/CHF/CAD Annual BMP Blood Test 09/02/2024 Osteoporosis Screening (Bone Density Screening) 06/14/2032 06/14/2022, 06/11/2020, 07/27/2018 DTaP,Tdap,and Td Vaccines (3 - Td or Tdap) 10/31/2032 10/31/2022, 09/14/2011 Pneumococcal Vaccine: 65+ Years Completed 06/08/2015, 09/18/2007, 09/18/2002 Influenza Vaccine Completed 07/08/2024, , 08/04/2022, Additional history exists HIB Vaccines Aged Out No longer eligi ble based on patient's age to complete this topic HPV Vaccines Aged Out No longer eligi ble based on patient's age to complete this topic Hepatitis A Vaccines Aged Out No long er eligible based on patient's age to complete this topic Hepatitis B Vaccines Aged Out No long er eligible based on patient's age to complete this topic IPV Vaccines Aged Out No longer eligi ble based on patient's age to complete this topic MMR Vaccines Aged Out No longer eligi ble based on patient's age to complete this topic Meningococcal ACWY Vaccine Aged Out N o longer eligible based on patient's age to complete this topic RSV Immunization Patients Under 20 months Aged Out No longer eligible based on patient's age to complete this topic Varicella Vaccines Aged Out No longer eligible based on patient's age to complete this topic Procedures Procedure Name Priority Date/Time Associated Diagnosis Comments MG MAMMO DIGITAL SCREENING W JESUS BILAT Routine 09/02/2024 10:54 AM EST Encounter for screening mammogram for breast cancer MAXIMINO DEXA AXIAL SKELETON Routine 06/14/2022 11:32 AM EDT Encounter for screening for osteoporosis from Last 3 Months or Most Recently Relevant to Health Maintenance Results * MG Mammo Digital Screening w Jesus bilat (09/02/2024 10:54 AM EST) Anatomical Region Laterality Modality Breast Bilateral Mammography 09/04/2024 9:39 AM EST Impressions 09/04/2024 9:45 AM EST No mammographic evidence of malignancy. A negative mammogram in the presence of a clinically suspicious palpable abnormality does not preclude the possibility of malignancy or alter the indications for biopsy. PQRI CPT II 3342F Code 07648, 72463 PQRI 225 CPT II 7025F TISSUE DENSITY: There are scattered areas of fibroglandular density. (BI-RADS category B) IMPRESSION: Benign. BI-RADS CATEGORY: 2 - BENIGN RECOMMENDATION: Screening bilateral mammogram is recommended in 1 year. Mammo Location: [facility], [address] [place] [address] -------- FINAL REPORT -------- Dictated By: Carlos Lemus Dictated Date: 09/04/2024 09:39 ET Assigned Physician: Carlos Lemus Reviewed and Electronically Signed By: Carlos Lemus Signed Date: 09/04/2024 09:45 ET Workstation ID: [id number] Transcribed By: Self Edit Transcribed Date: 09/04/2024 09:39 ET Narrative 09/04/2024 9:45 AM EST CLINICAL: The patient is a 88 years Female presenting for routine screening mammography. COMPARISON: Prior studies most recently 07/12/2023 and most remotely 07/10/2017. ?? TECHNIQUE: Full-field digital mammography of the breasts bilaterally consisting of tomosynthesis in MLO and CC projection is performed in the [employer] 2000-D unit. ??Computer aided detection utilizing the [employer] system was utilized. FINDINGS: The breasts are again seen to be composed of a combination of tiny fibroglandular elements as also demonstrated on multiple prior studies. Atherosclerotic arterial calcifications are again seen bilaterally, as well as a few scattered coarse benign calcifications in the left breast. There is no suspicious cluster of microcalcifications, mass, or area of architectural distortion. There is no skin thickening or nipple retraction. Procedure Note Carlos Lemus MD - 09/04/2024 CLINICAL: The patient is a 88 years Female presenting for routinescreening mammography. COMPARISON: Prior studies most recently 07/12/2023 and most gwiaplkz66/23/2017. TECHNIQUE: Full-field digital mammography of the breasts bilaterallyconsisting of tomosynthesis in MLO and CC projection is performed in the[employer] 2000-D unit. Computer aided detection utilizing the [employer] Medical Devicesystem was utilized. FINDINGS: The breasts are again seen to be composed of a combination oftiny fibroglandular elements as also demonstrated on multiple priorstudies. Atherosclerotic arterial calcifications are again seenbilaterally, as well as a few scattered coarse benign calcifications inthe left breast. There is no suspicious cluster of microcalcifications,mass, or area of architectural distortion. There is no skin thickening ornipple retraction. IMPRESSION: No mammographic evidence of malignancy. A negative mammogram in the presence of a clinically suspicious palpableabnormality does not preclude the possibility of malignancy or alter theindications for biopsy. PQRI CPT II 3342F Code 43499, 79767 PQRI 225 CPT II 7025F TISSUE DENSITY: There are scattered areas of fibroglandular density.(BI-RADS category B) IMPRESSION: Benign. BI-RADS CATEGORY: 2 - BENIGN RECOMMENDATION: Screening bilateral mammogram is recommended in 1 year. Mammo Location: [facility], [address] [place] [id number] -------- FINAL REPORT -------- Dictated By: Carlos Lemus Dictated Date: 09/04/2024 09:39 ET Assigned Physician: Carlos Lemus Reviewed and Electronically Signed By: Carlos Lemus Signed Date: 09/04/2024 09:45 ET Workstation ID: [id number] Transcribed By: Self Edit Transcribed Date: 09/04/2024 09:39 ET Self Referral Sppl IMG BI PROCEDURES * MAXIMINO DEXA AXIAL SKELETON (06/14/2022 11:32 AM EDT) Anatomical Region Laterality Modality Mammography 06/14/2022 10:1 3 AM EDT Narrative 06/14/2022 11:32 AM EDT [facility] Diagnostic Imaging Department [address] [place] [address] [id number] Patient: ??DONNELL LEWIS ?/Age/Sex: 1935 - F Unit#: ??[id number] ? Location/Status: ??SPDIMAM/REG CLI ? Mnemonic/Ordering Site: ??MAMDEXAAX/SPMAM Ordering Physician: ??KALEY SHULTZ MD Maximino Dexa Axial Skeleton - 06/14/221046 HISTORY: ??The patient is an 86-year-old postmenopausal female with clinical concern for metabolic bone disease. FINDINGS: ??Dual energy x-ray absorptiometry of the lumbar spine and femurs is performed. The mean bone mineral density at L1-L4 is 1.110 gm/cm2 which is 94% of that of young normals and 109% of that of age matched controls. This yields a T-score of -0.6 and a Z-score of 0.8 and there is therefore no evidence of osteoporosis or osteopenia here. The mean bone mineral density of the femurs bilaterally is 0.794 gm/cm2 which is 79% of that of young normals and 102% of that of age matched controls. ??This yields a T-score of -1.7 and a Z-score of 0.1 which is diagnostic of osteopenia. The T-score of the right femoral neck is -2.4 and that of the left femoral neck is -1.8 which is diagnostic of osteopenia. IMPRESSION: 1. Osteopenia. ??There has been an increase of 1.6% in bone mineral density in the lumbar spine since the prior examination of 06/11/2020. ??There has been a decrease of 4.0% in bone mineral density in the right femur and a decrease of 0.6% in bone mineral density in the left femur. 2. FRAX analysis yields a 10-year probability of major osteoporotic fracture of 17.9% and a 10-year probability of hip fracture of 6.2%. Code 24613 Dictating Physician: ??CARLOS LEMUS MD Electronically Signed by: ??CARLOS LEMUS MD Dic Date/Time: ??06/14/22 1131 Sign date/Time: ??06/14/22 1132 Procedure Note Carlos Lemus MD - 09/07/2022 [facility] Diagnostic Imaging Department [address] [place] [address] Patient: DONNELL LEWIS Reuben MurilloB./Age/Sex: 1935 - 86 - F Unit#: [id number] [facility]Ordering Site: [facility] TULAREDEXAAX/SPMAM Ordering Physician: KALEY SHULTZ MD Maximino Dexa Axial Skeleton - 06/14/22 - [id number] HISTORY: The patient is an 86-year-old postmenopausal female withclinical concern for metabolic bone disease. FINDINGS: Dual energy x-ray absorptiometry of the lumbar spine and femursis performed. The mean bone mineral density at L1-L4 is 1.110 gm/cm2 which is94% of that of young normals and 109% of that of age matched controls. Thisyields a T-score of -0.6 and a Z-score of 0.8 and there is therefore no evidenceof osteoporosis or osteopenia here. The mean bone mineral density of the femurs bilaterally is 0.794 gm/je9zbfod is 79% of that of young normals and 102% of that of age matched controls.This yields a T-score of -1.7 and a Z-score of 0.1 which is diagnostic ofosteopenia. The T-score of the right femoral neck is -2.4 and that of the left femoralneck is -1.8 which is diagnostic of osteopenia. IMPRESSION: 1. Osteopenia. There has been an increase of 1.6% in bone mineral densityin the lumbar spine since the prior examination of 06/11/2020. There has mora decrease of 4.0% in bone mineral density in the right femur and a decreaseof 0.6% in bone mineral density in the left femur. 2. FRAX analysis yields a 10-year probability of major osteoporoticfracture of 17.9% and a 10-year probability of hip fracture of 6.2%. Code 62447 Dictating Physician: CARLOS LEMUS MD Electronically Signed by: CARLOS LEMUS MD Dic Date/Time: 06/14/22 1131 Sign date/Time: 06/14/22 1132 Kaley Shultz MD IMG BI PROCEDURES from Last 3 Months or Most Recently Relevant to Health Maintenance Care Teams Turf Farmer Relationship Specialty Start Date End Date Brandie Gómez MD PCP - General Internal Medicine 07/06/24
--- OUTSIDE RECORDS SUMMARY | 2024-10-08 12:41 | XMS_ITS | Continuity of Care Document ---
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 Name Role Phone Jc MEZA, CHERRIE, MAYTE, Hi Sethi U navailable Allergies, Adverse Reactions, Alerts Substance Reaction Status Criticality latex Active No Information alendronate sodium Active No Inform ation Medications Medication Instructions Dosage Effective Dates (start - stop) Status Comments furosemide 20 mg tablet - Active Procedures Procedure Date Duplex Scan-extrem Veins; Uni/ CT & [place] D Inj Scleros Solut; Mx Veins 1- CT & [place] D Ultrason Guidan Needle Bx-rad- CT & [place] D Duplex Scan-extrem Veins; Uni/ [place] & [place] D Varithena, Single Truncal Vein - CT & [place] Offic/outpt E&m Estab 5 Min Trial- Telem edicine CT & [place] Office/Oupt E&M New Pt 30 Mins- CT & [place] Duplex Scan-extrem Veins; Comp- [place] & [place] Advance Directives Directive Yes / No Effective Date File Name No Information Encounters Encounter Description Practice Location Reason(s) For Visit Diagnoses Date Provider Providers Copied on Encounter [facility], [address] [place] [address] Dr Kate [address]R[place]aela [place], [id number], [place] tel:[phone] [facility] Encounter for follow-up examination after completed treatment for conditions other than malignant neoplasmPain in right leg Jc MEZA RVT, MAYTE [place]. [address] [place] [address], [address], [facility], [place], [id number] , [place]. tel:[phone] Referring Provider: Brandie Moss, [address] [place] [address], [address], [place], [address]. tel:[phone] [place] [facility], [address] [place] [address] [address]Rafaela [place], [id number], [place] tel:[phone] [facility] [place] Varicose veins of right lower extremity with other complications Dec- 0- 4 Jc MEZA RVT, RPVI Robert. [address] [place] [address] [address], [facility], [place], [id number] , [place]. [phone] Referring Provider: Brandie Moss, [address] [place] [address], [address], [place], [address]. tel:[phone] [place] [facility], [address] [place] [address] [facility] [address]Rafaela [place], [id number], [place] tel:[phone] [facility] [place] Encounter for follow-up examination after completed treatment for conditions other than malignant neoplasmChroni c venous hypertension (idiopathic) with other complications of right lower extremity Dec- 4 Jc MEZA RVT, MAYTE [place]. [address] [place] [address], [address], [facility], [place], [id number] , [place]. tel:[phone] Referring Provider: Brandie Moss, [address] [place] [address], [address], [place], [address]. tel:[phone] [place] [facility], [address] [place] [address] [address]Rafaela [place], [id number], [place] tel:[phone] [facility] [place] Varicose veins of right lower extremity with other complications Dec-0 4 Jc MEZA RVT, MAYTE Do. [address] [facility], [address], [facility], [id number] , [place]. [phone] Referring Provider: Brandie Moss, [address] [place] [address], [facility] [address], [place], [address]. tel:[phone] Offic/outpt E&m Estab 5 Min Trial- Telemedicine CT & [place] [facility], [address] [place] [address] Dr Kate 1000Rafaela hart [place], [id number], [place] tel:[phone] [facility] - [facility] Chronic venous hypertension (idiopathic) with other complications of bilateral lower extremity 4 Jc MEZA RVT, MAYTE Do. [address] [place] [address], [place], [place], [id number] , [place]. tel:[phone] Referring Provider: Brandie Moss, [address] [place] [address], [place] [address], [place], [address]. tel:[phone] [facility], [address] [place] [address] Dr [facility] [place], [id number], [place] tel:[phone] [facility] No Information 4 Jc MEZA RVT, MAYTE Do. [address] [place] [address], [place], [place], [id number] , [place]. tel:[phone] Office/Oupt E&M New Pt 30 Mins- [place] & [place] [facility], [address] [place] [address] Dr Kate 1000Rafaela hart [place], [id number], [place] tel:[phone] [facility] Body mass index [BMI] 30.0-30.9, adultChronic venous hypertension (idiopathic) without complications of bilateral lower extremity 4 Jc MEZA RVT, MAYTE Do. [address] [place] [address], [place], [place], [id number] , [place]. tel:[phone] Referring Provider: Brandie Moss, [address] [place] [address], [facility] [address], [place], [address]. tel:[phone] [facility], [address] [place] [address] Dr Kate 1000SuRafaela hart [place], [id number], [place] tel:[phone] [facility] Chronic venous hypertension (idiopathic) with other complications of bilateral lower extremity 4 Jc MEZA, RVT, RPVI Hi. [address] [facility] [address], [place], [place], [id number] , [place]. tel:[phone] Referring Provider: Brandie Block MD M, [address] [facility], [address], [place], [address]. tel:[phone] Family History Family Member Type Diagnosis Age At Onset No Information Payers Payer name Insurance type Covered libertarian ID Authoriza tion(s) Medicare JUANCARLOS CEBALLOS [id number] BCBS JUANCARLOS BL [id number] Social History Type Description Quantity Date Captured Comments Sex Female Smoking Status No Information Chief Complaint And Reason For Visit No Information Reason For Referral Reason For Referral No Information Plan Of Treatment Date Type Action Status Goal Diet education completed Appointment Alaina Mack BOOKED Appointment Alaina Mack BOOKED Appointment Alaina Mack BOOKED Appointment Alaina Mack BOOKED History Of Present Illness Encounter Date Complaint History Of Prese nt Illness No Information Functional Status Date Functional Assessmen t No Information Instructions Date Instruction Additional Infor mation Pre and post instruc tions reviewed and provided Related to Chronic venous hypertension (idiopathic) with other complications of bilateral lower extremity Compression stocking usage as conservative measure Related to Chronic venous hypertension (idiopathic) with other complications of bilateral lower extremity Giving Encouragement to Exercise Related to Body mass index [BMI] 30.0-30.9, adult Diet education Related to Body mass index [BMI] 30.0-30.9, adult Patient education booklet given Related to Chrn Vns Hypertnsn w/o Compl; BILAT Assessments Type Assessment Date No Information Patient Care Teams Name Effective Dates (start - stop) Status Members No Information
--- OUTSIDE RECORDS SUMMARY | 2024-10-08 12:41 | XMS_ITS | Data Portability ---
Author Organization [place] [facility], All[facility] Address [address] [address] Assessment Encounter Date Assessment Date Assessment LastModified by Organization Details LastModified Time 04/25/2024 04/25/2024 CL & CK both aids working fine - going out of warranty. - wants to keep coming 6month basis- 6mo appt made. Not available 04/25/2024 14:50:38 Plan of Treatment Reminders Order Date Submit Date Provider Last Modified By Organization Details Last Modified Time Details Appointments CUELL[facility] Fitting Follow Up (30) 2024 02:30P M REAL ABRAHAM, CHELSEA Not available Not available Not available Lab None recorded . Referral None recorded . Procedures None recorded . Surgeries None recorded . Imaging None recorded . Medication Orders None recorded . Patient TargetsNo targets recorded. Patient InstructionsNo instructions recorded. Reason for Referral None Reported. Results Created Date Observation Date Name Description Value Unit Range Abnormal Flag Note LastModifiedBy Organization Detail LastModifiedTime 05/07/2004/13/2021 jennifferi mary/jah carr No observ ation record ed. [email or web address] Not Available 22:11:55 05/07/20 24 11/23/2023 audio gram No observ ation record ed. [email or web address] Not Available 22:12:36 05/07/20 24 11/24/2022 audio gram No observ ation record ed. [email or web address] Not Available 22:12:38 05/07/20 24 12/02/2021 audio gram No observ ation record ed. [email or web address] Not Available 22:12:43 05/07/20 24 04/13/2021 audio gram No observ ation record ed. [email or web address] Not Available 22:12:48 05/07/20 24 05/06/2021 audio gram No observ ation record ed. [email or web address] Not Available 22:12:54 05/07/20 24 05/20/2021 audio gram No observ ation record ed. [email or web address] Not Available 22:12:55 05/07/20 24 05/25/2023 audio gram No observ ation record ed. [email or web address] Not Available 22:13:01 05/07/20 24 06/10/2021 audio gram No observ ation record ed. [email or web address] Not Available 22:13:03 05/07/20 24 06/23/2022 audio gram No observ ation record ed. [email or web address] Not Available 22:13:08 Result Notes None recorded. Problems Name Problem SNOMED Code Status Onset Date Resolution Date Notes Provider Name and Address Organization Details Recorded Time Asymmetri rema sensorine ural hearing loss 075537815 Active 2014 Hearing loss: Sensorineu ral hearing loss, asymmetric al; Note: Date Diagnosed: 12/24/2014 12:44 PM (389.16) Sensorin eural HL, asymmetric ; Note: Date Diagnosed: 12/23/2014 12:46 PM (389.16) ; Start Date : 12/23/2014 Not Available [facility] 4 02:42:47 Wheezing 77747923 Active 2020 Wheezing; Note: Date Diagnosed: 04/21/2021 3:15 PM (R06.2) Not Available [facility] 4 02:42:53 Subjectiv e tinnitus 09790947 Active 2014 Tinnitus; Note: Date Diagnosed: 12/23/2014 12:46 PM (388.31) Not Available [facility] 4 02:42:48 Cough 60461129 Active 2020 Cough; Note: Date Diagnosed: 03/09/2021 5:36 PM (R05) Not Available [facility] 4 02:42:47 Dizziness and giddiness 566448049 Active 2014 Dizziness; Note: Date Diagnosed: 12/23/2014 12:46 PM (780.4) Not Available [facility] 4 02:42:51 Sensorine ural hearing loss of bilateral ears 455718726 Active 2020 Sensorineu ral hearing loss, bilateral; Note: Date Diagnosed: 04/13/2021 11:08 AM (H90.3) Not Available [facility] 4 02:42:46 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 Procedures Surgical History None recorded. Imaging Results Imaging Date Name Status LastModified by [facility] Details LastModified Time 04/13/2021 imaging/diagno stic result completed Information not available 05/07/2024 22:11:55 11/23/2023 audiogram completed Information not available 05/07/2024 22:12:36 11/24/2022 audiogram completed Information not available 05/07/2024 22:12:38 12/02/2021 audiogram completed Information not available 05/07/2024 22:12:43 04/13/2021 audiogram completed Information not available 05/07/2024 22:12:48 05/06/2021 audiogram completed Information not available 05/07/2024 22:12:54 05/20/2021 audiogram completed Information not available 05/07/2024 22:12:55 05/25/2023 audiogram completed Information not available 05/07/2024 22:13:01 06/10/2021 audiogram completed Information not available 05/07/2024 22:13:03 06/23/2022 audiogram completed Information not available 05/07/2024 22:13:08 Procedure Notes None recorded. Medical Equipment None Reported. Allergies Allergen ID Allergen Name Allergen Category Reaction Reaction Severity Criticality Documentation Date Start Date Code Code System Note Provider Name and Address Organization Details Recorded Time 805887 Non-stero idal anti-infl ammatory agent (product) medicatio n other Not available Not available 01/30/2024 46389 005 SNOMED React ion: unkno wn, unspe cifie d;; Not Available [facility] 4 01:08:40 907552 latex environme nt,medica tion other Not available Not available 01/30/2024 40056 91 RxNorm React ion: unkno wn, unspe cifie d;; Not Available [facility] 4 01:08:41 159793 alendrona te sodium medicatio n other Not available Not available 01/30/2024 04319 2 RxNorm React ion: unkno wn, unspe cifie d;; Not Available [facility] 4 01:08:42 100207 Product containin g penicilli n and antibioti c (product) medicatio n other Not available Not available 01/30/2024 40834 05 SNOMED React ion: unkno wn, unspe cifie d;; Not Available [facility] 4 01:08:43 Medications Name Sig Start Date Stop Date Status Note LastModified by Organization Details LastModified Time atorvasta tin 40 mg tablet TAKE 1 TABLET BY MOUTH EVERYDAY AT BEDTIME active Not Available Not Available No t Available carvedilo l 6.25 mg tablet 1 TABLET BY MOUTH 2 TIMES A DAY,TAKE WITH FOOD AT BREAKFAS T AND SUPPER active Not Available Not Available No t Available azithromy patricia 250 mg tablet TAKE 2 TABLETS BY MOUTH 1 HOUR PRIOR TO APPT active Not Available Not Available No t Available valacyclo vir 1 gram tablet TAKE 1 TABLET BY MOUTH TWICE A DAY active Not Available Not Available No t Available metronida zole 0.75 % (37.5 mg/5 gram) vaginal gel INSERT 1 APPLICAT ORFUL VAGINALL Y AT BEDTIME TWICE A WEEK active Not Available Not Available No t Available valsartan 80 mg-hydroc hlorothia zide 12.5 mg tablet 03/09 completed Medicati on ID: [id number] Br and Name: valsarta n-hydroc hlorothi azide Se nd Method: E-Prescr ibed Sub s Allowed: subs OK Medic ationGen ericName : valsarta n-hydroc hlorothi azide Not Available Not Available Not Available hydrocort isone 2.5 % topical cream with perineal applicato r USE 1 APPLICAT ION TWICE A DAY NEEDED FOR 5 DAYS active Not Available Not Available No t Available pantopraz ole 40 mg tablet,de layed release 1 tablet by mouth 2014 active Medicati on ID: [id number] Du ration Value: 30 Brand Name: pantopra zole Sen d Method: E-Prescr ibed Sub s Allowed: subs OK Medic ationGen ericName : pantopra zole Not Available Not Available Not Available losartan 25 mg tablet active Medicati on ID: [id number] B rand Name: losartan Send Method: E-Prescr ibed Sub s Allowed: subs OK Medic ationGen ericName : losartan Not Available Not Available Not Available hydrochlo rothiazid e 12.5 mg capsule active Medicati on ID: [id number] B rand Name: hydrochl orothiaz ute Send Method: E-Prescr ibed Sub s Allowed: subs OK Medic ationGen ericName : hydrochl orothiaz ute Not Available Not Available Not Available omeprazol e 20 mg capsule,d elayed release TAKE 1 CAPSULE BY MOUTH EVERY DAY active Not Available Not Available No t Available Tylenol 325 mg tablet 2014 active Medicati on ID: [id number] Br and Name: Tylenol Send Method: E-Prescr ibed Sub s Allowed: subs OK Medic ationGen ericName : Tylenol Not Available Not Available Not Available furosemid e 20 mg tablet TAKE 1 TABLET BY MOUTH EVERY DAY active Not Available Not Available No t Available metoprolo l succinate ER 25 mg tablet,ex tended release 24 hr 03/09 completed Medicati on ID: [id number] Br and Name: metoprol ol succinat e Send Method: E-Prescr ibed Sub s Allowed: subs OK Medic ationGen ericName : metoprol ol succinat e Not Available Not Available Not Available estradiol 0.01% (0.1 mg/gram) vaginal cream USE DIRECTED TWICE A WEEK active Not Available Not Available No t Available Ativan 0.5 mg tablet 1 tablet by mouth 01/30 completed Medicati on ID: [id number] Pr escribed By Name: David Gaviria nd Name: Ativan S end Method: E-Prescr ibed Sub s Allowed: subs OK Speci al Instruct ion: take 30 min prior to MRI Medi cationGe nericNam e: Ativan Not Available Not Available Not Available losartan 100 mg tablet TAKE 1 TABLET BY MOUTH EVERY DAY active Not Available Not Available No t Available fluticaso ne propionat e 50 mcg/actua tion nasal spray,anupam pension SPRAY 2 SPRAYS INTO EACH NOSTRIL TWICE A DAY active Not Available Not Available No t Available ipratropi um bromide 21 mcg (0.03 %) nasal spray USE 1 SPRAY IN BOTH NOSTRILS DAILY AT BEDTIME active Not Available Not Available No t Available Vitamin D3 25 mcg (1,000 unit) capsule 03/09 completed Medicati on ID: [id number] Br and Name: Vitamin D3 Send Method: E-Prescr ibed Sub s Allowed: subs OK Medic ationGen ericName : Vitamin D3 Not Available Not Available Not Available Symbicort 80 mcg-4.5 mcg/actua tion HFA aerosol inhaler Inhale 2 puff using inhaler twice a day 2020 active Medicati on ID: [id number] D uration Value: 30 Prescri bed By Name: David Gaviria nd Name: Symbicor t Send Method: E-Prescr ibed Sub s Allowed: subs OK Medic ationGen ericName : Symbicor t Not Available Not Available Not Available Combivent Respimat 20 mcg-100 mcg/actua tion solution for inhalatio n Inhale 1 puff every six hours as needed 2020 active Medicati on ID: [id number] D uration Value: 30 Prescri bed By Name: David Gaviria nd Name: Combiven t Respimat Send Method: E-Prescr ibed Sub s Allowed: subs OK Medic ationGen ericName : Combiven t Respimat Not Available Not Available Not Available Vitals None Recorded Social History None recorded. Functional Status None recorded. Mental Status None recorded. Family History Nothing Reported. Medical History No medical history recorded. Gynecological HistoryNo gynecological history recorded. Obstetrics History GPAL:G 0 P 0 0 0 0 Past Encounters Encounter ID Performer Location Encounter Start Date Encounter Closed Date Diagnosis/Indication Diagnosis SNOMED-CT Code Diagnosis ICD10 Code Diagnosis Note [id number] CHELSEA CARRILLO [place] [address] [facility], [place] [address] [place] [address] 04/25/2024 14:27:26 04/26/2024 09:35:11 Sensorineural hearing loss of bilateral ears 397119827 H90.3 Health Concerns Section Related Observation LastModified by Organization Detai ls LastModified Time None Recorded Concern Status LastModified by Organization Details LastModified Time None Recorded Advance Directives Directive None Recorded Payers Encounter Date Sequence Insurance Name Policy Number Policy Motta Covered Member ID Motta Member ID Guarantor Name 04/25/2024 1 [place] [employer] Alaina Mack [id number] Alaina Mack 04/25/2024 2 [place] [id number] Alaina Mack [id number] Alaina Mack Notes Date Note Type Note Provider Name and Address Organization Details Recorded Time 04/25/2024 text/html Known bilateral SNHL. intermediate designer hearing aid user. Currently wearing Widex Moment 330 312D hearing aids #2R/#3L M receivers $[id number] canal lock prosper molds [employer] [id number] ZEESHAN 05/06/2021/Pawan negrete. Annual appt made prior to warranty expiration CHELSEA CARRILLO [address] [facility] [address], [place], [address], [facility] - [facility] 04/25/2024 14:50:57 OBGyn Episode No OBEpisode recorded.
== END 2024-10-08 12:03 | disposition home or self-care (01) ==
PROVIDERS: PCP Internal Medicine; Visit Provider Internal Medicine
DX: Z00.00 Encounter for general adult medical examination without abnormal findings (principal); I50.42 Chronic combined systolic (congestive) and diastolic (congestive) heart failure

== ENCOUNTER → 2024-10-08 11:02 | Outpatient (BNVA) | payer MEDICARE, SELFPAY | PROVIDERS: PCP Internal Medicine; Visit Provider Internal Medicine ==

== ENCOUNTER 2025-03-11 11:23 | Outpatient (AMB) | payer MEDICARE, SELFPAY ==
--- OUTSIDE RECORDS SUMMARY | 2024-12-04 07:00 | XMS_ITS | Continuity of Care Document ---
Author Organization [facility] Address [address] [place] [address] Phone Care Team Providers Care American Board Certified Orthotist Name Role Phone Jc MEZA, RVT, MAYTE, Hi Sethi U navailable Allergies, Adverse Reactions, Alerts Substance Reaction Status Criticality latex Active No Information alendronate sodium Active No Inform ation Medications Medication Instructions Dosage Effective Dates (start - stop) Status Comments furosemide 20 mg tablet - Active Procedures Procedure Date Office/Outpt E&M Established 10 Mins- CT & [place] Office/Outpt E&M Established 15 Mins- CT & [place] Duplex Scan-extrem Veins; Comp- CT & [place] Duplex Scan-extrem Veins; Uni/ CT & [place] J Inj Scleros Solut; Mx Veins 1- CT & [place] J Ultrason Guidan Needle Bx-rad- CT & [place] J Duplex Scan-extrem Veins; Uni/ CT & MA [...] Yes / No Effective Date File Name Other Directive No 12/04/2024 N/A WARNING:The information contained in this section is historical and is provided for information only and does not constitute a legal document or any assurance that the information is still accurate. Please verify the information with the white of the legal document before using it for clinical purposes. Encounters Encounter Description Practice Location Reason(s) For Visit Diagnoses Date Provider Providers Copied on Encounter Office/Outpt E&M Established 10 Mins- [place] & [place] [facility] MCNAIR, [address] [place] [address] Dr Kate 1000[address] 1000[place]afaela [place], [id number], tel:[phone] CVR - [facility] Venous insufficienc y (chronic) (peripheral) 5 Jc MEZA RVT, MAYTE Do. [address] [place] [address], [place], [place], [id number] , [place]. tel:[phone] Referring Provider: Brandie Moss, [address], [address]. tel:[phone] Office/Outpt E&M Established 15 Mins- [place] & [place] [facility], [address] [place] [address] Dr Kate [address] [place] [address]R[place], [id number], [place] tel:[phone] CVR - [facility] Venous insufficienc y (chronic) (peripheral) Phlebitis and thrombophleb itis of superficial vessels of left lower extremity 5 Jc MEZA RVT, MAYTE Do. [address] [place] [address], [place], [place], [id number] , [place]. tel:[phone] Referring Provider: Brandie Moss, [address], [address]. tel:[phone] [facility] MCNA[facility], [address] [place] [address] Dr Kate [address]Rfaaela [place], [id number], tel:[phone] CVR - [facility] Chronic venous hypertension (idiopathic) with other complication s of bilateral lower extremity 5 Jc MEZA RVT, RPVI Robert. [address] [place] [address] [place], [id number] , [place]. tel:[phone] Referring Provider: Brandie Moss, [address], [address]. tel:[phone] [facility], [address] [place] [address] Dr Kate [address]Rafaeal [place], [id number], [place] tel:[phone] [facility] Encounter for follow-up examination after completed treatment for conditions other than malignant neoplasmVari cose veins of left lower extremity with pain 5 Jc MEZA RVT, RPVI Robert. [address] [place] [address], [facility] [place], [id number] , [place]. [phone] Referring Provider: Branide Moss, [address], [address]. tel:[phone] [facility], [address] [place] [address] [address]Suite [facility] [place], [id number], [place] tel:[phone] [facility] Chronic venous hypertension (idiopathic) with inflammation of left lower extremity 5 Jc MEZA RVT, MAYTE Do. [address] [place] [address], [facility] [place], [id number] , [place]. tel:[phone] Referring Provider: Brandie Moss, [address], [address]. tel:[phone] [facility], [address] [place] [address] [address]Rafaela [place], [id number], [place] tel:[phone] [facility] Encounter for follow-up examination after completed treatment for conditions other than malignant neoplasmPain in right leg 4 Jc MEZA RVT, RPVI Robert. [address] [place] [address], [facility] [place] [id number] , [place]. tel:[phone] Referring Provider: Brandie Moss, [address], . 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 [address] [place] [address], [place], [place], [id number] , [place]. tel:[phone] Referring Provider: Brandie Moss, [address], . tel:[phone] [facility], [address] [place] [address] Dr Kate [address] [address]afaela [place], [id number], [place] tel:[phone] [facility] - [facility] Encounter for follow-up examination after completed treatment for conditions other than malignant neoplasmChro lukas venous hypertension (idiopathic) with other complication s of right lower extremity 4 Jc MEZA RVT, RPVI Robert. [address] [place] [address], [place], [place], [id number] , [place]. tel:[phone] Referring Provider: Brandie Moss, [address], . 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 [address] [place] [address], [place], [place], [id number] , [place]. tel:[phone] Referring Provider: Brandie Moss, [address], . tel:[phone] Offic/outpt E&m Estab 5 Min Trial- Telemedicine CT & [place] [facility], [address] [place] [address] Dr Kate 1000SuRafaela hart [place], [id number], [place] tel:[phone] [facility] Chronic venous hypertension (idiopathic) with other complication s of bilateral lower extremity 4 Jc MEZA RVT, RPVI Robert. [address] [place] [address], [place], [place], [id number] , [place]. tel:[phone] Referring Provider: Brandie Moss, [address], [address]. tel:[phone] [facility], [address] [place] [address] Dr Kate 1000SuRafaela hart [place], [id number], [place] tel:[phone] [facility] No Information 4 Jc MEZA RVT, RPVI Robert. [address] [place] [address], [place], [place], [id number] , [place]. tel:[phone] Office/Oupt E&M New Pt 30 Mins- CT & [place] [facility], [address] [place] [address] Dr Kate 1000SuRafaela hart [place], [id number], [place] tel:[phone] [facility] Body mass index [BMI] 30.0-30.9, adultChronic venous hypertension (idiopathic) without complication s of bilateral lower extremity Oct-0 4 Jc MEZA RVT, RPVI Robert. [address] [place] [address], [place], [place], [id number] , [place]. tel:[phone] Referring Provider: Brandie Moss, [address], [place], [address]. tel:[phone] [facility], [address] [place] [address] Dr Kate 1000Suite Rafaela Flannery [place], [id number], [place] tel:[phone] [facility] Chronic venous hypertension (idiopathic) with other complication s of bilateral lower extremity Oct-0 4 Jc MEZA, RVT, RPVI Hi. [address], [address], [place], [place], [id number] , [place]. tel:[phone] Referring Provider: Brandie Moss, [facility] [address] [facility], [place], [address]. tel:[phone] Family History Family Member Type Diagnosis Age At Onset No Information Payers Payer name Insurance type Covered libertarian ID Authoriza tion(s) Medicare JUANCARLOS CEBALLOS [id number] BCBS [facility] [id number] Social History Type Description Quantity Date Captured Comments Alcohol Use Details Unknown Caffeine Use Details Unknown Tobacco Use Status Current non-smoker Smoking Status Never Smoker Non-Smoking Tobacco Use Details : No Details Available : No Details Available Sex Female Vital Signs Date / Time: Height Weight BMI Pulse Rate Blood Pressure Temperature Respiratory Rate Body Surface Area Head Circumference Head Circ. Percentile Wt./Ace. Percentile BMI percentile Pulse Ox Inhaled Ox 78.470 kg (173.00 lbs) 30.6 4 kg/m eter (2) 150/80 mm[Hg] Chief Complaint And Reason For Visit No Information Reason For Referral Reason For Referral No Information Plan Of Treatment Date Type Action Status Goal Diet education completed Goal Diet education completed Goal Diet education completed Goal Diet education completed Goal Diet education completed Referral Ordered: Weight management: Referral to physician timeframe: 3 Months (related to Body mass index (BMI) 30.0-30.9, adult) ordered Referral Ordered: Brandie Block MD timeframe: 3 Months (related to Essential (primary) hypertension) ordered Referral Ordered: Brandie Block MD timeframe: 3 Months (related to Essential (primary) hypertension) ordered Referral Ordered: Weight management: Referral to physician timeframe: 3 Months (related to Body mass index (BMI) 30.0-30.9, adult) ordered History Of Present Illness Encounter Date Complaint History Of Prese nt Illness No Information Functional Status Date Functional Assessmen t No Information Instructions Date Instruction Additional Infor michael Exercise education Related to Es sential (primary) hypertension Compression stocking usage as conservative measure Related to Venous insufficiency (chronic) (peripheral) Pre and post instruc tions reviewed and provided Related to Venous insufficiency (chronic) (peripheral) Lifestyle education Related to B sylvester mass index (BMI) 30.0-30.9, adult Giving Encouragement to exercise Related to Body mass index (BMI) 30.0-30.9, adult Diet education Related to Body mass index (BMI) 30.0-30.9, adult Lifestyle education Related to E ssential (primary) hypertension Diet education Related to Essen tial (primary) hypertension Diet education Related to Body mass index (BMI) 30.0-30.9, adult Lifestyle education Related to E ssential (primary) hypertension Exercise education Related to Es sential (primary) hypertension Diet education Related to Essen tial (primary) hypertension Compression stocking usage as conservative measure Related to Venous insufficiency (chronic) (peripheral) Pre and post instruc tions reviewed and provided Related to Venous insufficiency (chronic) (peripheral) Lifestyle education Related to B sylvester mass index (BMI) 30.0-30.9, adult Giving Encouragement to exercise Related to Body mass index (BMI) 30.0-30.9, adult Compression stocking usage as conservative measure Related to Chronic venous hypertension (idiopathic) with other complications of bilateral lower extremity Pre and post instruc tions reviewed and [...]
--- NOTE | 2025-03-11 11:25 | MHC.PC.OV ---
Vital Signs 03/11/25 11:31 03/11/25 12:08 Height 5 ft 3 in Weight 183 lb BMI 32.4 BP 164/68 H 134/74 Blood Pressure Location Rt brachial Rt brachial Position Sitting Sitting Respiration 14 Pulse 68 Pulse Source Pulse Oximeter Temp 98.3 F Temp Source Oral Pulse Oximetry (%) 98 Oxygen Delivery Method Room Air Intake Visit Reasons: 1/2 h follow up Intake Note: Follow up. 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: No Allergies alendronate sodium (From Fosamax) Allergy (Severe, Verified 03/11/25 11:28) Diarrhea latex Allergy (Severe, Verified 03/11/25 11:28) Rash NSAIDS (Non-Steroidal Anti-Inflamma Allergy (Severe, Verified 03/11/25 11:28) Stomach Upset Penicillins Allergy (Severe, Verified 03/11/25 11:28) Rash Tobacco use date assessed: 06/11/24 Dental Screening Dental Screen Date: 06/11/24 HPI HPI Comments History of Present Illness Details 89 year old female with a past medical history of hypertension, hyperlipidemia, GERD, osteoporosis presenting for follow up CV: off losartan 100mg daily, atorvastatin. Continue lasix. Home blood pressure well controlled. Echo with normalized EF, grade 2 diastolic dysfunction.. Sees cardiology. No increase in cheset pain, LE edema. She had an echo in 2020, stress echo in 2021-EF decreased from 55-60 to 45-50 with hypokineses noted. Cardiology had recommended catheterization but patient wanted to defer. Saw vascular had b/l vein procedure. GERD: On PPI. Endo: Follows with [facility] endo, Dr Cradoso. Used actonel and fosamax in the past with exacerbation of GERD. Saw them 02/2024 discussed reclast further-she is still considering this. She will repeat DXA TOMEKA: on CPAP. MSK: Chronic bilateral knee pain. History of knee replacements. CTS b/l. Needs cane at times. Uses braces but quite old. Recent left CMC swelling. pain has dissipated. Colonoscopy 2016-saw gi decline colonoscopy Mammo 05/2022. 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 ROS see HPI PHYSICAL EXAM: GENERAL: Alert and oriented x 3. NAD EYES: EOMI. Anicteric. HENT: Moist mucous membranes. No scleral icterus. No cervical lymphadenopathy. LUNGS: Clear to auscultation bilaterally. CARDIOVASCULAR: Regular rate and rhythm. ABDOMEN: Soft, non-tender +bs EXTREMITIES: No edema. Non-tender. SKIN: No rashes or lesions. Warm. NEUROLOGIC: No focal neurological deficits. CN II-XII grossly intact PSYCHIATRIC: Cooperative. Appropriate mood and affect [facility] Medical History Vitamin D deficiency Tubular adenoma of colon Tinnitus Squamous cell carcinoma in situ TOMEKA (obstructive sleep apnea) History of nocturia Mixed incontinence Mantoux: positive Hypertension Hyperlipidemia Hyperglycemia Eczema Deep vein thrombosis Benign familial hematuria Arthritis Macular degeneration, age related Surgical History History of total right knee replacement History of bilateral oophorectomy History of hysterectomy Hx of appendectomy History of colonoscopy Family History Other Family history unknown Social History Household Members: Spouse Housing: House Are you a primary spiritual care coordinator to a significant other at home: No Do you presently have visiting nurse or other home services: No 75 years or older and lives alone: No Alcohol intake: current Alcohol intake frequency: holidays/special occasions only Patient Tobacco Use Status: Never used Tobacco e-Cigarette/Vaping Use: Never Used service: No Current occupational status: retired Cognitive needs: No Hearing needs: No Vision needs: No Questionnaire PHQ-9 Over the last 2 weeks, how often have you been bothered by any of the following problems? 1. Little interest or pleasure in doing things: not at all 2. Feeling down, depressed, or hopeless: not at all 3. Trouble falling or staying asleep, or sleeping too much: not at all 4. Feeling tired or having little energy: not at all 5. Poor appetite or overeating: not at all 6. Feeling bad about yourself - or that you are a failure or have let yourself or your family down: not at all 7. Trouble concentrating on things, such as reading the newspaper or watching television: not at all 8. Moving or speaking so slowly that other people could have noticed. Or the opposite - being so fidgety or restless that you have been moving around a lot more than usual: not at all 9. Thoughts that you would be better off or of hurting yourself in some way: not at all Total score: 0 Depression Screening Interpretation: Negative Depression Screening Done: Yes 34646 - PHQ-9 Billing: Yes Source: Developed by Drs. Hi Pradhan, Rosa Rdz, Zechariah Gao and colleagues, with an educational cherelle from [employer]. Thrive Questionnaire Date Thrive assessed: 10/08/24 I am a: Patient What is your living situation today?: I have a steady place to live Within the past 12 months, did the food you bought not last and you didn't have the money to get more?: Never true Within the past 12 months, did you worry whether your food would run out before you got money to buy more?: Never true Do you have trouble paying for medicines?: No Do you have trouble getting transportation to medical appointments?: No Do you have trouble paying your heating and electricity bill?: No Do you have trouble taking care of your child, family member or friend?: No Do you have trouble with day-to-day activities such as bathing, preparing meals, shopping, managing finances, etc.?: No Are you currently unemployed and looking for a job?: No Are you interested in more education?: No Please select the resources that you would like help with: None Currently or been in a relationship where the following occur: No concerns reported THRIVE Score: 0 AUDIT C Alcohol Use Questionnaire (AUDIT-C) 1. How often do you have a drink containing alcohol?: 4 or more times a week 2. How many drinks containing alcohol do you have on a typical day when you are drinking?: 1 or 2 3. How often do you have six or more drinks on one occasion?: Never Total Score: 4 BRANDAN-7 AMB Questionnaire BRANDAN-7 Date BRANDAN - 7 assessed: 04/08/24 Feeling nervous, anxious, or on edge: 0 = Not at all Not being able to stop or control worryin = Not at all Worrying too much about different things: 0 = Not at all Trouble relaxin = Not at all Being so restless that it is hard to sit still: 0 = Not at all Becoming easily annoyed or irritable: 0 = Not at all Feeling afraid as if something awful might happen: 0 = Not at all Total BRANDAN-7 score (0-4 normal; 5-9 mild; 10-14 moderate; 15-21 severe): 0 Source: Developed by Drs. Hi Pradhan, Rosa Rdz, Zechariah Gao and colleagues, with an educational cherelle from [employer]. Physical exam (Primary Care) Vital Signs: Last Vital Signs Temp 98.3 F 03/11/25 11:31 Pulse 68 03/11/25 11:31 Resp 14 03/11/25 11:31 BP 164/68 H 03/11/25 11:31 Pulse Ox 98 03/11/25 11:31 Oxygen Delivery Method Room Air 03/11/25 11:31 BMI result Body Mass Index 32.4 Tobacco/Smoking Status: Tobacco use Status Tobacco use date assessed 06/11/24 03/11/25 11:26 Patient Tobacco Use Status Never used Tobacco 03/11/25 11:26 e-Cigarette/Vaping Use Never Used 03/11/25 11:26 PHQ-9: PHQ-9 Score PHQ-9: Total score 0 03/11/25 11:26 Depression Screening Interpretation: Negative Thrive Assessment: Date of Thrive Assessment Date Thrive assessed 10/08/24 03/11/25 11:26 Currently or been in a relationship where the following occur: No concerns reported Coding Level of Care Code Est Pt Level 4 (77343) Complex EM visit Add On G2211 Diagnoses Primary hypertension I10 Hypertension type: primary hypertension 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 Heart failure type: combined systolic and diastolic Heart failure chronicity: chronic Hyperglycemia R73.9 TOMEKA (obstructive sleep apnea) G47.33 Additional Codes PHQ-9 - 29261 - PHQ-9 Billing: Yes ([id number]) Assessment & Plan Assessment & Plan (1) Hypertension: Code(s): I10 - Essential (primary) hypertension Category: Medical Qualifiers: Hypertension type: primary hypertension Qualified Code(s): I10 - Essential (primary) hypertension (2) CHF (congestive heart failure): Code(s): I50.9 - Heart failure, unspecified Category: Medical Qualifiers: Heart failure type: combined systolic and diastolic Heart failure chronicity: chronic Qualified Code(s): I50.42 - Chronic combined systolic (congestive) and diastolic (congestive) heart failure (3) Hyperglycemia: Code(s): R73.9 - Hyperglycemia, unspecified Category: Medical (4) TOMEKA (obstructive sleep apnea): Code(s): G47.33 - Obstructive sleep apnea (adult) (pediatric) Category: Medical Plan 89 year old female for follow up CHF euvolemic. continue cardiology follow up HTN -controlled at home. low salt diet. OA-stable on current therapy. follows ortho Orders: Orders Complete Blood Count Auto Diff Today D64.9 - Anemia, unspecified, G47.33 - Obstructive sleep apnea (adult) (pediatric), I10 - Essential (primary) hypertension, I50.42 - Chronic combined systolic (congestive) and diastolic (congestive) heart failure, R73.9 - Hyperglycemia, unspecified Lipid Panel Today D64.9 - Anemia, unspecified, G47.33 - Obstructive sleep apnea (adult) (pediatric), I10 - Essential (primary) hypertension, I50.42 - Chronic combined systolic (congestive) and diastolic (congestive) heart failure, R73.9 - Hyperglycemia, unspecified Vitamin D 25-OH (D2 and D3) Today D64.9 - Anemia, unspecified, G47.33 - Obstructive sleep apnea (adult) (pediatric), I10 - Essential (primary) hypertension, I50.42 - Chronic combined systolic (congestive) and diastolic (congestive) heart failure, R73.9 - Hyperglycemia, unspecified Vitamin B12 and Folate Today D64.9 - Anemia, unspecified, G47.33 - Obstructive sleep apnea (adult) (pediatric), I10 - Essential (primary) hypertension, I50.42 - Chronic combined systolic (congestive) and diastolic (congestive) heart failure, R73.9 - Hyperglycemia, unspecified Comprehensive Met. Panel Today D64.9 - Anemia, unspecified, G47.33 - Obstructive sleep apnea (adult) (pediatric), I10 - Essential (primary) hypertension, I50.42 - Chronic combined systolic (congestive) and diastolic (congestive) heart failure, R73.9 - Hyperglycemia, unspecified IRON PROFILE Today D64.9 - Anemia, unspecified, G47.33 - Obstructive sleep apnea (adult) (pediatric), I10 - Essential (primary) hypertension, I50.42 - Chronic combined systolic (congestive) and diastolic (congestive) heart failure, R73.9 - Hyperglycemia, unspecified Medications: New valacyclovir (Valtrex) Take 2 tabs oral twice daily for one day as needed for cold sore 2,000 mg (2 x 1 gram) PO BID PRN 40 tabs 1RF cold sore
[2025-03-11 11:31] VITALS: BP 164/68; PULSE 68; RESP 14; TEMP 36.8; O2SAT 98; BMI 32.4
[2025-03-11 12:08] VITALS: BP 134/74
== END 2025-03-11 12:09 | disposition home or self-care (01) ==
LOC: HO.HMCFM 11:23
PROVIDERS: PCP Internal Medicine; Visit Provider Internal Medicine
DX: I10 Essential (primary) hypertension (principal); I50.42 Chronic combined systolic (congestive) and diastolic (congestive) heart failure; R73.9 Hyperglycemia, unspecified; G47.33 Obstructive sleep apnea (adult) (pediatric)

== ENCOUNTER → 2025-03-11 11:23 | Outpatient (BNVA) | payer MEDICARE, SELFPAY | PROVIDERS: PCP Internal Medicine; Visit Provider Internal Medicine | DX: I11.0 Hypertensive heart disease with heart failure (principal); I50.42 Chronic combined systolic (congestive) and diastolic (congestive) heart failure; R73.9 Hyperglycemia, unspecified; G47.33 Obstructive sleep apnea (adult) (pediatric); E78.5 Hyperlipidemia, unspecified; K21.9 Gastro-esophageal reflux disease without esophagitis; Z79.899 Other long term (current) drug therapy; Z99.89 Dependence on other enabling machines and devices; Z13.31 Encounter for screening for depression | CPT/HCPCS: 96127; 99212 ==

== ENCOUNTER 2025-08-22 11:17 | Outpatient (AMB) | payer MEDICARE, SELFPAY ==
--- NOTE | 2025-08-22 11:21 | A.OFFPC_ITS ---
Intake Visit Reasons: AWV/CPE Allergies alendronate sodium (From Fosamax) Allergy (Severe, Verified 03/11/25 11:28) Diarrhea latex Allergy (Severe, Verified 03/11/25 11:28) Rash NSAIDS (Non-Steroidal Anti-Inflamma Allergy (Severe, Verified 03/11/25 11:28) Stomach Upset Penicillins Allergy (Severe, Verified 03/11/25 11:28) Rash Tobacco use date assessed: 06/11/24 Dental Screening Dental Screen Date: 06/11/24 [facility] Medical History Vitamin D deficiency Tubular adenoma of colon Tinnitus Squamous cell carcinoma in situ TOMEKA (obstructive sleep apnea) History of nocturia Mixed incontinence Mantoux: positive Hypertension Hyperlipidemia Hyperglycemia Eczema Deep vein thrombosis Benign familial hematuria Arthritis Macular degeneration, age related Surgical History History of total right knee replacement History of bilateral oophorectomy History of hysterectomy Hx of appendectomy History of colonoscopy Family History Other Family history unknown Social History Household Members: Spouse Housing: House Are you a primary ambulatory care coordinator to a significant other at home: No Do you presently have visiting nurse or other home services: No 75 years or older and lives alone: No Alcohol intake: current Alcohol intake frequency: holidays/special occasions only Patient Tobacco Use Status: Never used Tobacco e-Cigarette/Vaping Use: Never Used service: No Current occupational status: retired Cognitive needs: No Hearing needs: No Vision needs: No Questionnaire Thrive Questionnaire Date Thrive assessed: 03/11/25 I am a: Patient What is your living situation today?: I have a steady place to live Within the past 12 months, did the food you bought not last and you didn't have the money to get more?: Never true Within the past 12 months, did you worry whether your food would run out before you got money to buy more?: Never true Do you have trouble paying for medicines?: No Do you have trouble getting transportation to medical appointments?: No Do you have trouble paying your heating and electricity bill?: No Do you have trouble taking care of your child, family member or friend?: No Do you have trouble with day-to-day activities such as bathing, preparing meals, shopping, managing finances, etc.?: No Are you currently unemployed and looking for a job?: No Are you interested in more education?: No Please select the resources that you would like help with: None Currently or been in a relationship where the following occur: No concerns reported THRIVE Score: 0 BRANDAN-7 AMB Questionnaire BRANDAN-7 Date BRANDAN - 7 assessed: 04/08/24 Source: Developed by Drs. Hi Pradhan, Rosa Rdz, Zechariah Gao and colleagues, with an educational cherelle from [employer]. Physical exam (Primary Care) Tobacco/Smoking Status: Tobacco use Status Tobacco use date assessed 06/11/24 03/11/25 11:26 Patient Tobacco Use Status Never used Tobacco 03/11/25 11:26 e-Cigarette/Vaping Use Never Used 03/11/25 11:26 Thrive Assessment: Date of Thrive Assessment Date Thrive assessed 03/11/25 08/22/25 11:18 Currently or been in a relationship where the following occur: No concerns reported Coding
[2025-08-22 11:24] VITALS: BP 148/86; PULSE 71; RESP 14; TEMP 36.6; O2SAT 97; BMI 32.1
--- NOTE | 2025-08-22 11:25 | AM.OFFVISMDC ---
Intake Vital Signs 08/22/25 11:24 08/22/25 11:34 Height 5 ft 3 in Weight 181 lb BMI 32.1 32.1 BP 148/86 H Blood Pressure Location Lt brachial Position Sitting Respiration 14 Pulse 71 Pulse Source Pulse Oximeter Temp 98 F Temp Source Oral Pulse Oximetry (%) 97 Oxygen Delivery Method Room Air Intake Visit Reasons: AWV/CPE Intake Note: Medical wellness visit C D Still Operator Required: No Allergies alendronate sodium (From Fosamax) Allergy (Severe, Verified 03/11/25 11:28) Diarrhea latex Allergy (Severe, Verified 03/11/25 11:28) Rash NSAIDS (Non-Steroidal Anti-Inflamma Allergy (Severe, Verified 03/11/25 11:28) Stomach Upset Penicillins Allergy (Severe, Verified 03/11/25 11:28) Rash HPI HPI Comments History of Present Illness Details 89 year old female with a past medical history of hypertension, hyperlipidemia, GERD, osteoporosis presenting for MWV CV: off losartan 100mg daily, atorvastatin, on lasix. Blood pressure has been higher. Restart losartan today 25mg daily. Echo with normalized EF, grade 2 diastolic dysfunction.. Sees cardiology. No increase in cheset pain, LE edema. She had an echo in 2020, stress echo in 2021-EF decreased from 55-60 to 45-50 with hypokineses noted. Cardiology had recommended catheterization but patient wanted to defer. Saw vascular had b/l vein procedure. GERD: On PPI. Endo: Follows with [facility] endo, Dr Cardoso. Used actonel and fosamax in the past with exacerbation of GERD. TOMEKA: on CPAP. MSK: Chronic bilateral knee pain. History of right knee replacement-NEOS. CTS b/l. Left knee pain has increased. Was severe years ago. Would like to see orthopedics again.Uses cane Colonoscopy 2016-saw gi decline colonoscopy Mammo 05/2022. Apartment Locator 11/2021 s/p TSH BSO-follows with Dr Singh. HRA reviewed Care team reviewed independent ADLS with exception does not drive. Good support Negative depression ROS see HPI PHYSICAL EXAM: GENERAL: Alert and oriented x 3. NAD EYES: EOMI. Anicteric. HENT: Moist mucous membranes. No scleral icterus. No cervical lymphadenopathy. LUNGS: Clear to auscultation bilaterally. CARDIOVASCULAR: Regular rate and rhythm. ABDOMEN: Soft, non-tender +bs EXTREMITIES: No edema. Non-tender. SKIN: No rashes or lesions. Warm. NEUROLOGIC: No focal neurological deficits. CN II-XII grossly intact PSYCHIATRIC: Cooperative. Appropriate mood and affect [facility] Medical History Vitamin D deficiency Tubular adenoma of colon Tinnitus Squamous cell carcinoma in situ TOMEKA (obstructive sleep apnea) History of nocturia Mixed incontinence Mantoux: positive Hypertension Hyperlipidemia Hyperglycemia Eczema Deep vein thrombosis Benign familial hematuria Arthritis Macular degeneration, age related Surgical History History of total right knee replacement History of bilateral oophorectomy History of hysterectomy Hx of appendectomy History of colonoscopy Family History Other Family history unknown Social History Household Members: Spouse Housing: House Are you a primary residential child care counselor to a significant other at home: No Do you presently have visiting nurse or other home services: No 75 years or older and lives alone: No Alcohol intake: current Alcohol intake frequency: holidays/special occasions only Patient Tobacco Use Status: Never used Tobacco e-Cigarette/Vaping Use: Never Used service: No Current occupational status: retired Cognitive needs: No Hearing needs: No Vision needs: No Questionnaire Medicare Wellness Checkup What is your age?: 80 or older What gender do you identify with?: female During the past 4 weeks, how much have you been bothered by emotional problems such as feeling anxious, depressed, irritable, sad or downhearted, and blue?: slightly During the past 4 weeks, has your physical & emotional health limited your social activities with family, friends, neighbors, or groups?: not at all During the past 4 weeks, how much bodily pain have you generally had?: mild pain During the past 4 weeks, was someone available to help you if you needed & wanted help?: yes, as much as I wanted During the past 4 weeks, what was the hardest physical activity you could do for at least 2 minutes?: moderate Can you get to places out of walking distance without help? (For eg., can you travel alone on buses, taxis or drive your car?): Yes (with a cane) Can you go shopping for groceries or clothes without someone's help?: No Can you prepare your own meals?: No Can you do your housework without help?: No Can you handle your own money without help?: No During the past 4 weeks how have things been going for you?: pretty well Are you having difficulties driving your car?: not applicable, I don't use a car Do you always fasten your seat belt when you are in a car?: yes, usually During past 4 weeks, have you been bothered by the following: never: Sexual problems?, Trouble eating well?, Teeth or denture problems? and Problems using the telephone? and sometimes: Falling or dizzy when standing up and Tiredness or fatigue? Have you fallen 2 or more times in the past year?: No Are you afraid of falling?: No Are you a smoker?: no During the past 4 weeks, how many drinks of wine, beer, or other alcoholic beverages did you have?: no alcohol at all Do you exercise for about 20 minutes 3 or more times a week?: yes, all the time Have you been given information to help with the following?: yes: Hazards in your house that might hurt you? and yes: Keeping track of your medications? How often do you have trouble taking medicines the way you have been told to take them?: I always take medicine as prescribed How confident are you that you can control & manage most of your health problems?: very confident What is your race?: White PHQ-9 Over the last 2 weeks, how often have you been bothered by any of the following problems? 1. Little interest or pleasure in doing things: not at all 2. Feeling down, depressed, or hopeless: not at all 3. Trouble falling or staying asleep, or sleeping too much: not at all 4. Feeling tired or having little energy: not at all 5. Poor appetite or overeating: several days 6. Feeling bad about yourself - or that you are a failure or have let yourself or your family down: not at all 7. Trouble concentrating on things, such as reading the newspaper or watching television: not at all 8. Moving or speaking so slowly that other people could have noticed. Or the opposite - being so fidgety or restless that you have been moving around a lot more than usual: not at all 9. Thoughts that you would be better off or of hurting yourself in some way: not at all Total score: 1 Depression Screening Interpretation: Negative Depression Screening Done: Yes 42306 - PHQ-9 Billing: Yes Source: Developed by Drs. Hi Pradhan, Rosa Rdz, Zechariah Gao and colleagues, with an educational cherelle from [employer]. Physical Exam Vital Signs: Last Vital Signs Temp 98 F 08/22/25 11:24 Pulse 71 08/22/25 11:24 Resp 14 08/22/25 11:24 BP 148/86 H 08/22/25 11:24 Pulse Ox 97 08/22/25 11:24 Oxygen Delivery Method Room Air 08/22/25 11:24 BMI result Body Mass Index 32.1 Assessment & Plan Assessment & Plan (1) Annual wellness visit: Code(s): Z00.00 - Encounter for general adult medical examination without abnormal findings (2) CHF (congestive heart failure): Code(s): I50.9 - Heart failure, unspecified Qualifiers: Heart failure type: combined systolic and diastolic Heart failure chronicity: chronic Qualified Code(s): I50.42 - Chronic combined systolic (congestive) and diastolic (congestive) heart failure (3) Left knee pain: Code(s): M25.562 - Pain in left knee Qualifiers: Chronicity: chronic Qualified Code(s): M25.562 - Pain in left knee; G89.29 - Other chronic pain (4) TOMEKA (obstructive sleep apnea): Code(s): G47.33 - Obstructive sleep apnea (adult) (pediatric) Plan 89 year old female presenting for MWV Increased left knee pain, severe OA-referral orthopedics CV-BP running high, restart losartan at 25mg daily Orders: Referrals Orthopedics Referral M25.562 - Pain in left knee Medications: New losartan 25 mg PO DAILY 90 tabs 3RF Quality Reporting (2019) Depression/Bipolar (159/160/161/177) PHQ-9: Total score: 1 Coding Level of Care Code Medicare Subsequent (G0439) Diagnoses Annual wellness visit Z00.00 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 Heart failure type: combined systolic and diastolic Heart failure chronicity: chronic Chronic pain of left knee M25.562; G89.29 Chronicity: chronic TOMEKA (obstructive sleep apnea) G47.33 Additional Codes PHQ-9 - 23314 - PHQ-9 Billing: Yes ([id number])
[2025-08-22 11:34] VITALS: BMI 32.1
--- OUTSIDE RECORDS SUMMARY | 2025-08-22 13:54 | XMS_ITS | Clinical Summary ---
Author Organization [facility] Address [address] [place] [address] Phone Care Team Providers Care [place] Guide Name Role Phone Brandie Gómez MD Primary Care Provider [phone] Surgical History Surgery Date Site/Laterality Comments HYSTERECTOMY Family History Medical History Relation Name Comments Breast cancer Mother's Sister Relation Name Status Comments Mother's Sister Social History Tobacco Use Types Packs/Day Years Used Date Smoking Tobacco: Never Assessed Comments No Sex and Gender Information Value Date Recorded Sex Assigned at Female 07/23/2024 8:26 AM EST Legal Sex Female 12:56 PM EST Gender Identity Female 07/23/2024 8:26 AM EST Sexual Orientation Straight 07/23/2024 8: 26 AM EST Obstetrics History Para Term AB IAB SAB [...] 09/02/2024 10:52 AM EST Plan of Treatment Upcoming Encounters Date Type Department Care Team (Late st Contact Info) Description 09/08/2025 10:30 AM EST Appointment [facility] [address] [address] Health Maintenance Due Date Last Done Comments Zoster Vaccines (2 of 3) 01/31/2008 12/06/2007 RSV Immunization Adult Patients (1 - 1-dose 75+ series) 2012 Cholesterol Screening (Lipid Panel) 08/16/2022 Falls Risk Assessment 08/16/2022 Medicare Annual Wellness Visit 08/16/2022 Social Influencers of Health Screening 08/16/2022 Hypertension/CHF/CAD Annual BMP Blood Test 09/02/2024 Depression Screening 09/18/2024 COVID-19 Vaccine ( season) 2025 09/28/2021, 01/21/2021, 12/29/2020 Influenza Vaccine (#1) 2025 , 07/25/2023, 08/04/2022, Additional history exists Osteoporosis Screening (Bone Density Screening) 06/14/2032 06/14/2022, 06/11/2020, 07/27/2018 DTaP,Tdap,and Td Vaccines (3 - Td or Tdap) 10/31/2032 10/31/2022, 09/14/2011 Pneumococcal Vaccine: 50+ Years Completed 06/08/2015, 09/18/2007, 09/18/2002 HIB Vaccines Aged Out No longer eligi [...] patient's age to complete this topic Meningococcal B Vaccine Aged Out No l onger eligible based on patient's age to complete this topic RSV Immunization Patients Under 20 months Aged Out No longer eligible based on patient's age to complete this topic Varicella Vaccines Aged Out No longer eligible based on patient's age to complete this topic Procedures Procedure Name Priority Date/Time Associated Diagnosis Comments [facility] DEXA AXIAL SKELETON Routine 06/14/2022 11:32 AM EDT Encounter for screening for osteoporosis from Last 3 Months or Most Recently Relevant to Health Maintenance Results * [facility] DEXA AXIAL SKELETON (06/14/2022 11:32 AM EDT) Anatomical Region Laterality Modality Mammography 06/14/2022 10:1 3 AM EDT Narrative 06/14/2022 11:32 AM EDT [facility] Diagnostic Imaging Department [address] [place] [id number] Patient: DONNELL LEWIS Reuben /Age/Sex: 1935 - Unit#: [id number] Location/Status: SPDIMA/REG CLI [facility] Ordering Physician: KALEY SHULTZ MD [facility] Dexa Axial Skeleton - 06/14/221046 HISTORY: The patient is an 86-year-old postmenopausal female with clinical concern for metabolic bone disease. FINDINGS: Dual [...] 102% of that of age matched controls. This yields a T-score of -1.7 and a [...] the prior examination of 06/11/2020. There has been a decrease of 4.0% in bone mineral density in the right femur and a decrease of 0.6% in bone mineral density in the left femur. 2. FRAX analysis yields a 10-year probability of major osteoporotic fracture of 17.9% and a 10-year probability of hip fracture of 6.2%. Code 49295 Dictating Physician: CARLOS LEMUS MD Electronically Signed by: CARLOS LEMUS MD Dic Date/Time: 06/14/22 1131 Sign date/Time: 06/14/22 1132 Procedure Note Carlos Lemus MD - 09/07/2022 [facility] Diagnostic Imaging Department [address] [place] [address] Patient: DONNELL LEWIS Reuben MurilloB./Age/Sex: 1935 - 86 - F Unit#: [id number] Location/Status: [facility] Ordering Physician: KALEY SHULTZ MD [facility] Dexa Axial Skeleton - 06/14/22 - 1047 HISTORY: The patient is an 86-year-old postmenopausal [...] density of the femurs bilaterally is 0.794 gm/sb1viuaj is 79% of that of young normals [...] probability of hip fracture of 6.2%. Code 05772 Dictating Physician: CARLOS LEMUS MD Electronically Signed by: CARLOS LEMUS MD Dic Date/Time: 06/14/22 1131 Sign date/Time: 06/14/22 1132 Kaley Shultz MD IM BI PROCEDURES Final Re sult from Last 3 Months or Most Recently Relevant to Health Maintenance Insurance MEDICARE [facility] [facility] Care Teams [place] Guide Relationship Specialty Start Date End Date Bradnie Gómez MD [address] [place] [address] PCP - General Internal Medicine 07/25/25
== END 2025-08-22 11:55 | disposition home or self-care (01) ==
PROVIDERS: PCP Internal Medicine; Visit Provider Internal Medicine
DX: Z00.00 Encounter for general adult medical examination without abnormal findings (principal); I50.42 Chronic combined systolic (congestive) and diastolic (congestive) heart failure; M25.562 Pain in left knee; M25.561 Pain in right knee; G47.33 Obstructive sleep apnea (adult) (pediatric)

== ENCOUNTER → 2025-08-22 11:17 | Outpatient (BNVA) | payer MEDICARE, SELFPAY | PROVIDERS: PCP Internal Medicine; Visit Provider Internal Medicine | DX: I50.42 Chronic combined systolic (congestive) and diastolic (congestive) heart failure (principal); Z13.39 Encounter for screening examination for other mental health and behavioral disorders; M25.562 Pain in left knee; G89.29 Other chronic pain; G47.33 Obstructive sleep apnea (adult) (pediatric); K21.9 Gastro-esophageal reflux disease without esophagitis; Z99.89 Dependence on other enabling machines and devices; M25.561 Pain in right knee | CPT/HCPCS: 96127; 99212 ==